=== PATIENT | male | born 1965 | race Caucasian/White ===

== ENCOUNTER 2017-05-09 15:18 | Inpatient (IN) | payer OTHER, MEDICARE ==
[~2017-05-09] VITALS: Ht 172.7 cm; Wt 88.1 kg
[~2017-05-09 15:18] MED LIST: ATOR20TA PO; BENZ1TAB PO; EFFE75CA PO; GEOD80CA PO; NAPR500 PO; TRAZ100 PO
[2017-05-09 15:49] VITALS: BP 127/83; PULSE 118; RESP 20; TEMP 98.9; O2SAT 94
[2017-05-09 17:11] LABS: AUTOMATED NEUTROPHIL # 5.5 TH/MM3 (1.8-7.7); BASOPHIL # 0.1 TH/MM3 (0-0.2); BASOPHIL % 0.7 % (0.0-2.0); EOSINOPHIL # 0.3 TH/MM3 (0-0.4); EOSINOPHIL % 3.6 % (0.0-4.0); HEMATOCRIT 49.9 % (39.0-51.0); HEMOGLOBIN 17.7 GM/DL (13.0-17.0); LYMPH % 22.7 % (9.0-44.0); LYMPHOCYTE # 1.9 TH/MM3 (1.0-4.8); MEAN CELL VOLUME 96.6 FL (80.0-100.0); MEAN CORPUSCULAR HEMOGLOBIN 34.3 PG (27.0-34.0); MEAN CORPUSCULAR HGB CONC 35.5 % (32.0-36.0); MEAN PLATELET VOLUME 7.6 FL (7.0-11.0); MONOCYTE # 0.7 TH/MM3 (0-0.9); PLATELET COUNT 184 TH/MM3 (150-450); RED BLOOD COUNT 5.16 MIL/MM3 (4.50-5.90); RED CELL DISTRIBUTION WIDTH 12.8 % (11.6-17.2); WHITE BLOOD COUNT 8.5 TH/MM3 (4.0-11.0)
[2017-05-09 17:36] LABS: ALBUMIN 4.5 GM/DL (3.4-5.0); AST (GOT) 33 U/L (15-37); BICARBONATE 22.7 MEQ/L (21.0-32.0); BLOOD UREA NITROGEN 25 MG/DL (7-18); CHLORIDE 106 MEQ/L (98-107); CREATININE 1.31 MG/DL (0.60-1.30); GLOMERULAR FILTRATION RATE 57 ML/MIN (>89); GLUCOSE,RANDOM 105 MG/DL (74-106); SODIUM (NA) 137 MEQ/L (136-145)
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
[2017-05-09 17:43] LABS: ALKALINE PHOSPHATASE 67 U/L (45-117); ALT (GPT) 42 U/L (12-78); TOTAL BILIRUBIN ADULT 0.5 MG/DL (0.2-1.0)
[2017-05-09 17:45] LABS: ACETAMINOPHEN LESS THAN 2.0 MCG/ML (10.0-30.0)
[2017-05-09 18:00] VITALS: BP 122/85; PULSE 100; RESP 18; TEMP 98.7; O2SAT 96
[2017-05-10 06:09] VITALS: BP 117/71; PULSE 82; RESP 18; TEMP 98.5; O2SAT 99
[2017-05-10 09:53] VITALS: BP 123/69; PULSE 86; RESP 18; O2SAT 94
[2017-05-10] MEDS ORDERED: ACETAMINOPHEN 325 MG TAB PO PRN (10:30)
[2017-05-10] MEDS ORDERED: LORazepam 1 MG TAB PO PRN (10:30)
[2017-05-10] MEDS ORDERED: NAPROXEN 500 MG TAB PO PRN (10:30)
[2017-05-10] MEDS ORDERED: MAGNESIUM HYDROXIDE SUSP 30 ML CUP PO PRN (10:30)
[2017-05-10] MEDS ORDERED: ALUMINUM/MAGNESIUM/SIMETH 30 ML CUP PO PRN (10:30)
[2017-05-10] MEDS ORDERED: diphenhydrAMINE HCL 50 MG CAP PO PRN (10:30)
[2017-05-10] MEDS ORDERED: diphenhydrAMINE HCL 50 MG/ML VIAL IM PRN (10:30)
[2017-05-10] MEDS ORDERED: LORazepam 2 MG/ML VIAL IM PRN (10:30)
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
--- NOTE | 2017-05-10 12:47 | PD.CONS ---
HPI Service [facility] Hospitalists Consult Requested By Dr. Hernandez Reason for Consult Hx of cardiovascular disease. Primary Care Physician No Primary Care Physician Diagnoses: History of Present Illness Written by Mona Amezcua, acting as scribe for Dr. Sarkar on 05/10/17 at 12: 35. 52-year-old male with history of schizoaffective disorder, tobacco use, and hyperlipidemia admitted to inpatient psychiatry under Shi act for aggressive behavior and threatening staff members at [facility]. Hospitalist consulted for evaluation of history of cardiovascular disease however patient denies any hypertension or heart problems. The patient reports over the last five days he has been "on the very edge". He admits to feeling depressed. He is residing at an [facility] and he believes people in the home are stealing from him. He currently denies any auditory or visual hallucinations. He denies any medical complaints including no headache, lightheadedness, dizziness, chest pain , palpitations, shortness of breath, abdominal pain, nausea/vomiting, or urinary complaints. Vital signs currently stable. Labs remarkable for creatinine 1.31, baseline around 0.9 on previous visits. Review of Systems Except as stated in HPI: all other systems reviewed are Neg Past Family Social History Allergies: Coded Allergies: loxapine (Unverified Allergy, Severe, EYES ROLL TO BACK OF HEAD, 12/13/16) sertraline (Unverified Allergy, Severe, EYES ROLL TO BACK OF HEAD, 12/13/16 ) Past Medical History Schizoaffective disorder Hyperlipidemia Past Surgical History Right hand abscess I&D, +MRSA in 2009 Reported Medications Naprosyn (Naproxen) 500 Mg Tab 500 Mg PO Q12HR PRN Atorvastatin 20 mg tab (Atorvastatin Calcium) 20 Mg Tab 1 Tab PO HS Effexor Xr (Venlafaxine HCl) 75 Mg Cap 75 Mg PO BID Trazodone HCl 100 Mg Tab 100 Mg PO HS Benztropine Mesylate 1 Mg Tab 1 Mg PO BID Geodon (Ziprasidone) 80 Mg Cap 160 Mg PO HS Active Ordered Medications Current Medications Medications (Trade) Dose Ordered Sig/Srini Route Start Time Stop Time Status Last Admin (Ativan) 1 mg Q6H PRN PO 05/10/17 10:30 (Ativan Inj) 1 mg Q6H PRN IM 05/10/17 10:30 (Benadryl) 50 mg Q6H PRN PO 05/10/17 10:30 (Benadryl Inj) 50 mg Q6H PRN IM 05/10/17 10:30 (Tylenol) 650 mg Q4H PRN PO 05/10/17 10:30 (Milk Of Magnesia Liq) 30 ml DAILY PRN PO 05/10/17 10:30 (Mag-Al Plus Susp Liq) 30 ml Q6H PRN PO 05/10/17 10:30 (Cogentin) 1 mg BID PO 05/10/17 21:00 (Naprosyn) 500 mg Q12HR PRN PO 05/10/17 10:30 (Desyrel) 100 mg HS PO 05/10/17 21:00 (Effexor Xr) 75 mg BID PO 05/10/17 21:00 (Geodon) 160 mg HS PO 05/10/17 21:00 (Lipitor) 20 mg HS PO 05/10/17 21:00 Family History Mother with breast cancer, Father with no significant medical problems, still living Social History Smokes tobacco, 1415 cigarettes per day Denies any alcohol or illicit drug use Currently residing at an [facility] however patient believes he may now be homeless Physical Exam Vital Signs Vital Signs Date Time Temp Pulse Resp B/P (MAP) Pulse Ox O2 Delivery O2 Flow Rate FiO2 05/10/17 09:53 86 18 123/69 (87) 94 05/10/17 06:09 98.5 82 18 117/71 (86) 99 Room Air 05/09/17 18:00 98.7 100 18 122/85 (97) 96 Room Air 05/09/17 15:49 98.9 118 20 127/83 (98) 94 Physical Exam GENERAL: Well-nourished, well-developed middle-aged male patient in [facility]. SKIN: Warm and dry. No rash. HEAD: Normocephalic. Atraumatic. EYES: Pupils equal and round. No scleral icterus. No injection or drainage. ENT: No nasal bleeding or discharge. Mucous membranes pink and moist. NECK: Supple. Trachea midline. CARDIOVASCULAR: Regular rate and rhythm. S1, S2 noted. No murmur appreciated. RESPIRATORY: No accessory muscle use. Clear to auscultation. Breath sounds equal bilaterally. GASTROINTESTINAL: Abdomen soft, non-tender, nondistended. Normoactive bowel sounds x4. MUSCULOSKELETAL: No obvious deformities. Extremities without clubbing, cyanosis , or edema. NEUROLOGICAL: Awake and alert. No obvious cranial nerve deficits. Motor grossly within normal limits. Normal speech. Laboratory Laboratory Tests Test 05/09/17 16:15 White Blood Count 8.5 Red Blood Count 5.16 Hemoglobin 17.7 Hematocrit 49.9 Mean Corpuscular Volume 96.6 Mean Corpuscular Hemoglobin 34.3 Mean Corpuscular Hemoglobin Concent 35.5 Red Cell Distribution Width 12.8 Platelet Count 184 Mean Platelet Volume 7.6 Neutrophils (%) (Auto) 65.0 Lymphocytes (%) (Auto) 22.7 Monocytes (%) (Auto) 8.0 Eosinophils (%) (Auto) 3.6 Basophils (%) (Auto) 0.7 Neutrophils # (Auto) 5.5 Lymphocytes # (Auto) 1.9 Monocytes # (Auto) 0.7 Eosinophils # (Auto) 0.3 Basophils # (Auto) 0.1 CBC Comment DIFF FINAL Differential Comment Blood Urea Nitrogen 25 Creatinine 1.31 Random Glucose 105 Total Protein 8.0 Albumin 4.5 Calcium Level 9.0 Alkaline Phosphatase 67 Aspartate Amino Transf (AST/SGOT) 33 Alanine Aminotransferase (ALT/SGPT) 42 Total Bilirubin 0.5 Sodium Level 137 Potassium Level 3.6 Chloride Level 106 Carbon Dioxide Level 22.7 Anion Gap 8 Estimat Glomerular Filtration Rate 57 Salicylates Level 5.3 Urine Opiates Screen NEG Acetaminophen Level LESS THAN 2.0 Urine Barbiturates Screen NEG Urine Amphetamines Screen NEG Urine Benzodiazepines Screen NEG Urine Cocaine Screen NEG Urine Cannabinoids Screen NEG Ethyl Alcohol Level LESS THAN 3 Result Diagram: 05/09/17 1615 05/09/17 1615 Assessment and Plan Problem List: (1) RICO (acute kidney injury) ICD Code: N17.9 - Acute kidney failure, unspecified (2) HLD (hyperlipidemia) ICD Code: E78.5 - Hyperlipidemia, unspecified (3) Schizophrenia, paranoid type ICD Code: F20.0 - Paranoid schizophrenia Assessment and Plan 52-year-old male with history of schizoaffective disorder, tobacco use, and hyperlipidemia admitted to inpatient psychiatry under Shi act for aggressive behavior and threatening staff members at [facility]. Hospitalist consulted for evaluation of history of cardiovascular disease however patient denies any hypertension or heart problems. Schizoaffective Disorder with Aggressive Behavior: currently under Shi Act and admitted to inpatient psychiatry. -continue treatment per psychiatry RICO: Creatinine 1.31, baseline around 0.9 on previous visits. Suspect secondary to mild dehydration. -Encourage oral fluid intake -Avoid nephrotoxins -Repeat BMP in am, if stable, will likely sign off Hyperlipidemia: chronic, stable -LFTs wnl -continue patient's statin DVT Prophylaxis: patient is ambulatory the above note was scribed by Ms. Mona Amezcua ( KESHA). I attest that I had a [id number] encounter with the patient and personally performed the physical exam and medical decision making . Discussed Condition With Patient, sewing supervisor Mona Amezcua PA-C May 10, 2017 12:47 Kathy Sarkar MD May 10, 2017 13:11
[2017-05-10] MEDS: traZODone HCL 100 MG TAB PO SCH (21:13)
[2017-05-10] MEDS: BENZTROPINE MESYLATE 1 MG TAB PO SCH (21:13)
[2017-05-10] MEDS: VENLAFAXINE HCL XR 75 MG CAP PO SCH (21:14)
[2017-05-10] MEDS: ATORVASTATIN 20 MG TAB PO SCH (21:14)
[2017-05-10] MEDS: ZIPRASIDONE HCL 80 MG CAP PO SCH (21:14)
[2017-05-11 05:53] VITALS: BP 105/71; PULSE 98; RESP 17; TEMP 98; O2SAT 96
[2017-05-11] MEDS: BENZTROPINE MESYLATE 1 MG TAB PO SCH ×2 (08:25→20:18)
[2017-05-11] MEDS: VENLAFAXINE HCL XR 75 MG CAP PO SCH ×2 (08:25→20:18)
[2017-05-11 11:45] LABS: AUTOMATED NEUTROPHIL # 3.8 TH/MM3 (1.8-7.7); BASOPHIL # 0.1 TH/MM3 (0-0.2); BASOPHIL % 1.1 % (0.0-2.0); EOSINOPHIL # 0.2 TH/MM3 (0-0.4); EOSINOPHIL % 3.3 % (0.0-4.0); HEMATOCRIT 49.9 % (39.0-51.0); LYMPH % 27.4 % (9.0-44.0); LYMPHOCYTE # 1.8 TH/MM3 (1.0-4.8); MEAN CELL VOLUME 96.4 FL (80.0-100.0); MEAN CORPUSCULAR HEMOGLOBIN 34.7 PG (27.0-34.0); MONO % 10.4 % (0.0-8.0); MONOCYTE # 0.7 TH/MM3 (0-0.9); NEUT % 57.8 % (16.0-70.0); PLATELET COUNT 196 TH/MM3 (150-450); RED BLOOD COUNT 5.17 MIL/MM3 (4.50-5.90); RED CELL DISTRIBUTION WIDTH 12.6 % (11.6-17.2); WHITE BLOOD COUNT 6.6 TH/MM3 (4.0-11.0)
[2017-05-11 11:58] LABS: ALBUMIN 4.1 GM/DL (3.4-5.0); AST (GOT) 21 U/L (15-37); BICARBONATE 23.1 MEQ/L (21.0-32.0); BLOOD UREA NITROGEN 19 MG/DL (7-18); CALCIUM 9.4 MG/DL (8.5-10.1); CHLORIDE 103 MEQ/L (98-107); CREATININE 1.09 MG/DL (0.60-1.30); GLOMERULAR FILTRATION RATE 71 ML/MIN (>89); GLUCOSE,RANDOM 80 MG/DL (74-106); SODIUM (NA) 139 MEQ/L (136-145)
[2017-05-11 12:00] LABS: CHOLESTEROL 122 MG/DL (120-200); TRIGLYCERIDES 174 MG/DL (42-150)
[2017-05-11 12:26] LABS: ALKALINE PHOSPHATASE 65 U/L (45-117); ALT (GPT) 40 U/L (12-78); CHOLESTEROL/ HDL RATIO 3.77 RATIO; HDL CHOLESTEROL 32.3 MG/DL (40.0-60.0); LDL CHOLESTEROL 55 MG/DL (0-99); TOTAL BILIRUBIN ADULT 0.5 MG/DL (0.2-1.0); TOTAL PROTEIN 7.8 GM/DL (6.4-8.2)
[2017-05-11 12:45] LABS: BANDS 1 % (0-6); BASOPHILS 1 % (0-2); LYMPHOCYTES 30 % (9-44); MONOCYTES 10 % (0-8); NEUTROPHIL # MANUAL DIFF 3.8 TH/MM3 (1.8-7.7); POLYS (SEG NEUTROPHILS) 57 % (16-70)
[2017-05-11] MEDS: NICOTINE 14 MG/24 HR PATCH T-DERMAL SCH (12:45)
--- NOTE | 2017-05-11 12:47 | HHI.PR ---
Subjective Remarks in no distress. looks and feels better today. no new complaints. d/w the RN and no acute issues over night. Objective Vitals Vital Signs Date Time Temp Pulse Resp B/P (MAP) Pulse Ox O2 Delivery O2 Flow Rate FiO2 05/11/17 05:53 98.0 98 17 105/71 (82) 96 05/10/17 12:59 Result Diagram: 05/11/17 1017 05/11/17 1017 Objective Remarks GENERAL: This is a well-nourished, well-developed patient, in no apparent distress. CARDIOVASCULAR: Regular rate and regular rhythm without murmurs, gallops, or rubs. RESPIRATORY: Clear to auscultation. Breath sounds equal bilaterally. No wheezes , rales, or rhonchi. GASTROINTESTINAL: Abdomen soft, non-tender, nondistended. Normal, active bowel sounds MUSCULOSKELETAL: Extremities without clubbing, cyanosis, or edema. NEURO: awake and alert. Medications and IVs Inpatient Medications Acetaminophen (Tylenol) 650 mg Q4H PRN PO Temp >101F; Start 05/10/17 at 10:30 Al Hydrox/Mg Hydrox/Simethicone (Mag-Al Plus Susp Liq) 30 ml Q6H PRN PO DYSPEPSIA; Start 05/10/17 at 10:30 Atorvastatin Calcium (Lipitor) 20 mg HS PO Last administered on 05/10/17at 21:14 ; Start 05/10/17 at 21:00 Benztropine Mesylate (Cogentin) 1 mg BID PO Last administered on 05/11/17at 08: 25; Start 05/10/17 at 21:00 Diphenhydramine HCl (Benadryl Inj) 50 mg Q6H PRN IM For mild anxiety and/or EPS ; Start 05/10/17 at 10:30 Diphenhydramine HCl (Benadryl) 50 mg Q6H PRN PO For mild anxiety and/or EPS; Start 05/10/17 at 10:30 Lorazepam (Ativan Inj) 1 mg Q6H PRN IM MODERATE TO SEVERE ANXIETY; Start at 10:30 Lorazepam (Ativan) 1 mg Q6H PRN PO MODERATE TO SEVERE ANXIETY; Start 05/10/17 at 10:30 Magnesium Hydroxide (Milk Of Magnesia Liq) 30 ml DAILY PRN PO CONSTIPATION; Start 05/10/17 at 10:30 Miscellaneous Information 1 DAILY T-DERMAL ; Start 05/12/17 at 09:00; Status UNV Naproxen (Naprosyn) 500 mg Q12HR PRN PO PAIN SCALE 1 TO 10; Start 05/10/17 at 10:30 Nicotine (Habitrol 14 Mg Patch.24 Hr) 1 patch DAILY T-DERMAL ; Start 05/11/17 at 12:45; Status UNV Trazodone HCl (Desyrel) 100 mg HS PO Last administered on 05/10/17at 21:13; Start 05/10/17 at 21:00 Venlafaxine HCl (Effexor Xr) 75 mg BID PO Last administered on 05/11/17at 08:25 ; Start 05/10/17 at 21:00 Ziprasidone (Geodon) 160 mg HS PO Last administered on 05/10/17at 21:14; Start 05/10/17 at 21:00 A/P Problem List: (1) RICO (acute kidney injury) ICD Code: N17.9 - Acute kidney failure, unspecified (2) HLD (hyperlipidemia) ICD Code: E78.5 - Hyperlipidemia, unspecified (3) Schizophrenia, paranoid type ICD Code: F20.0 - Paranoid schizophrenia Assessment and Plan Schizoaffective Disorder with Aggressive Behavior: currently under Shi Act and admitted to inpatient psychiatry. -continue treatment per psychiatry RICO: improved. Suspect secondary to mild dehydration. -Encourage oral fluid intake -Avoid nephrotoxins Hyperlipidemia: chronic, stable -LFTs wnl -continue patient's statin vitamin d deficiency; will replace. DVT Prophylaxis: patient is ambulatory [facility] will sign off and see him as needed. Kathy Sarkar MD May 11, 2017 12:47
[2017-05-11 13:38] LABS: HEMOGLOBIN A1C 5.4 % (4.3-6.0)
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
[2017-05-11 18:20] VITALS: BP 105/72; PULSE 108; RESP 17; TEMP 98.1; O2SAT 95
[2017-05-11] MEDS: ATORVASTATIN 20 MG TAB PO SCH (20:18)
[2017-05-11] MEDS: ZIPRASIDONE HCL 80 MG CAP PO SCH (20:18)
[2017-05-11] MEDS: traZODone HCL 100 MG TAB PO SCH (20:18)
[2017-05-12 06:00] VITALS: BP 114/69; PULSE 95; RESP 18; TEMP 97.9; O2SAT 98
[2017-05-12] MEDS: REMOVE OLD PATCH T-DERMAL SCH (09:00)
[2017-05-12] MEDS: NICOTINE 14 MG/24 HR PATCH T-DERMAL SCH (09:38)
[2017-05-12] MEDS: VENLAFAXINE HCL XR 75 MG CAP PO SCH ×2 (09:39→16:43)
[2017-05-12] MEDS: CHOLECALCIFEROL (VIT D3) 1000 UNIT TAB PO SCH (09:39)
[2017-05-12] MEDS: BENZTROPINE MESYLATE 1 MG TAB PO SCH ×2 (09:39→21:19)
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
--- NOTE | 2017-05-12 16:19 | EKG ---
Date Performed: 05/11/2017 Time Performed: 12:48:57 PTAGE: 52 years EKG: Sinus rhythm WITH SHORT CT INTERVAL BORDERLINE ECG PREVIOUS TRACING : 12/27/2013 21.50 Since previous tracing, no significant change noted DOCTOR: Tony Sears Interpretating Date/Time 05/12/2017 16:18:48
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
[2017-05-12 18:46] VITALS: BP 125/74; PULSE 103; RESP 17; TEMP 97.8; O2SAT 93
[2017-05-12] MEDS: ATORVASTATIN 20 MG TAB PO SCH (21:19)
[2017-05-12] MEDS: ZIPRASIDONE HCL 80 MG CAP PO SCH (21:19)
[2017-05-12] MEDS: traZODone HCL 100 MG TAB PO SCH (21:19)
[2017-05-13 06:06] VITALS: BP 118/59; PULSE 92; RESP 16; TEMP 97.2
[2017-05-13] MEDS: REMOVE OLD PATCH T-DERMAL SCH (09:00)
[2017-05-13] MEDS: NICOTINE 14 MG/24 HR PATCH T-DERMAL SCH (10:01)
[2017-05-13] MEDS: VENLAFAXINE HCL XR 75 MG CAP PO SCH ×2 (10:02→17:07)
[2017-05-13] MEDS: CHOLECALCIFEROL (VIT D3) 1000 UNIT TAB PO SCH (10:03)
[2017-05-13] MEDS: BENZTROPINE MESYLATE 1 MG TAB PO SCH ×2 (10:03→21:47)
--- NOTE | 2017-05-13 15:37 | HHI.PYPN ---
Subjective Remarks Pt seen and discussed with staff. He has been compliant with medications and denies side effects. No aggression or agitation on unit. He engages in odd behaviors and is guarded and paranoid. No S/HI Mental Status Examination Appearance: Disheveled Consciousness: Alert Orientation: Person, Place, Date/Time Motor Activity: Normal gait Speech: Hesitant, Slow Language: Adequate Fund of Knowledge: Adequate Attention and Concentration: Inadequate Memory: Impaired Mood: Sad, Anxious Affect: Sad Thought Process & Associations: Linear, Other Thought Content: Bizarre thinking, Delusional Hallucination Type: None Delusion Type: Paranoid, Other (persecutory) Suicidal Ideation: Yes Suicidal Plan: Yes Suicidal Intention: Yes Homicidal Ideation: No Homicidal Plan: No Homicidal Intention: No Insight: Poor Judgment: Poor Results Vitals/IOs Vital Signs Date Time Temp Pulse Resp B/P (MAP) Pulse Ox O2 Delivery O2 Flow Rate FiO2 05/13/17 06:06 97.2 92 16 118/59 (78) 05/12/17 18:46 93 05/10/17 06:09 Room Air Assessment & Plan Problem List: (1) Schizophrenia, paranoid type ICD Codes: F20.0 - Paranoid schizophrenia Assessment & Plan Continue current tx plan. Estimated LOS: days Justification for Cont. Inpt. impairments in reality testing Dalia Galeas MD May 13, 2017 15:37
[2017-05-13 18:27] VITALS: BP 127/75; PULSE 93; RESP 17; TEMP 98.5; O2SAT 97
[2017-05-13] MEDS: ATORVASTATIN 20 MG TAB PO SCH (21:47)
[2017-05-13] MEDS: traZODone HCL 100 MG TAB PO SCH (21:47)
[2017-05-13] MEDS: ZIPRASIDONE HCL 80 MG CAP PO SCH (21:47)
[2017-05-14 05:36] VITALS: BP 101/74; PULSE 99; RESP 17; TEMP 97.4; O2SAT 95
[2017-05-14] MEDS: REMOVE OLD PATCH T-DERMAL SCH (09:00)
[2017-05-14] MEDS: BENZTROPINE MESYLATE 1 MG TAB PO SCH ×2 (10:28→20:21)
[2017-05-14] MEDS: CHOLECALCIFEROL (VIT D3) 1000 UNIT TAB PO SCH (10:28)
[2017-05-14] MEDS: VENLAFAXINE HCL XR 75 MG CAP PO SCH ×2 (10:28→16:00)
[2017-05-14] MEDS: NICOTINE 14 MG/24 HR PATCH T-DERMAL SCH (10:30)
--- NOTE | 2017-05-14 13:12 | HHI.PYPN ---
Subjective Remarks Pt seen and discussed with staff. He remains guarded and internally preoccupied , with bizarre behaviors. He interacts minimally and does not participate in activities. He is compliant with medications and denies side effects. No SI/HI Mental Status Examination Appearance: Disheveled Consciousness: Alert Orientation: Person, Place, Date/Time Motor Activity: Normal gait Speech: Hesitant, Slow Language: Adequate Fund of Knowledge: Adequate Attention and Concentration: Inadequate Memory: Impaired Mood: Sad, Anxious Affect: Sad Thought Process & Associations: Linear, Other Thought Content: Bizarre thinking, Delusional Hallucination Type: None (internal stimulation), Other Delusion Type: Paranoid, Other (persecutory) Suicidal Ideation: No Suicidal Plan: No Suicidal Intention: No Homicidal Ideation: No Homicidal Plan: No Homicidal Intention: No Insight: Poor Judgment: Poor Results Vitals/IOs Vital Signs Date Time Temp Pulse Resp B/P (MAP) Pulse Ox O2 Delivery O2 Flow Rate FiO2 05/14/17 05:36 97.4 99 17 101/74 (83) 95 Intake and Output 05/14/17 05/14/17 05/15/17 08:00 16:00 00:00 Intake Total 240 ml 240 ml Balance 240 ml 240 ml Assessment & Plan Problem List: (1) Schizophrenia, paranoid type ICD Codes: F20.0 - Paranoid schizophrenia Assessment & Plan Continue current tx plan. Estimated LOS: days Justification for Cont. Inpt. impairments in reality construction and self care Dalia Galeas MD May 14, 2017 13:12
[2017-05-14 17:20] VITALS: BP 123/73; PULSE 84; RESP 16; TEMP 97.8; O2SAT 97
[2017-05-14] MEDS: traZODone HCL 100 MG TAB PO SCH (20:21)
[2017-05-14] MEDS: ZIPRASIDONE HCL 80 MG CAP PO SCH (20:21)
[2017-05-14] MEDS: ATORVASTATIN 20 MG TAB PO SCH (20:21)
[2017-05-15 05:40] VITALS: BP 110/80; PULSE 91; RESP 17; TEMP 97.8; O2SAT 97
[2017-05-15] MEDS: REMOVE OLD PATCH T-DERMAL SCH (09:00)
[2017-05-15] MEDS: BENZTROPINE MESYLATE 1 MG TAB PO SCH ×2 (10:03→20:51)
[2017-05-15] MEDS: CHOLECALCIFEROL (VIT D3) 1000 UNIT TAB PO SCH (10:03)
[2017-05-15] MEDS: VENLAFAXINE HCL XR 75 MG CAP PO SCH ×2 (10:03→15:54)
[2017-05-15] MEDS: NICOTINE 14 MG/24 HR PATCH T-DERMAL SCH (10:05)
[2017-05-15 18:00] VITALS: BP 115/71; PULSE 103; RESP 18; TEMP 98.7; O2SAT 97
[2017-05-15] MEDS: ZIPRASIDONE HCL 80 MG CAP PO SCH (20:51)
[2017-05-15] MEDS: traZODone HCL 100 MG TAB PO SCH (20:51)
[2017-05-15] MEDS: ATORVASTATIN 20 MG TAB PO SCH (20:51)
[2017-05-16 05:42] VITALS: BP 94/53; PULSE 82; RESP 18; TEMP 97.7; O2SAT 92
[2017-05-16] MEDS: VENLAFAXINE HCL XR 75 MG CAP PO SCH ×2 (08:22→15:53)
[2017-05-16] MEDS: CHOLECALCIFEROL (VIT D3) 1000 UNIT TAB PO SCH (08:22)
[2017-05-16] MEDS: BENZTROPINE MESYLATE 1 MG TAB PO SCH ×2 (08:22→20:54)
[2017-05-16] MEDS: REMOVE OLD PATCH T-DERMAL SCH (08:22)
[2017-05-16] MEDS: NICOTINE 14 MG/24 HR PATCH T-DERMAL SCH (08:22)
[2017-05-16 08:47] VITALS: BP 94/53; PULSE 82; RESP 18; TEMP 97.7; O2SAT 92
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
--- NOTE | 2017-05-16 14:30 | HHI.PYPN ---
Subjective Remarks This is seen for follow-up, chart reviewed. Discussion she staff reported the patient hadn't been compliant has a, cooperative staff. Patient found participating group earlier but was able to cooperate with interview today. Patient states that he had been sleeping well his mood has been "alright" denies any physical complaints, eating and drinking well Patient continues with paranoid and persecutory ideation stating that the government is trying to persecute him into "doing what is that" referring to an individual in 1986 who had went on a shooting rampage and killed 14 people. Patient states that he does not want to do anything of that sort stating that it is wrong and currently denying any homicidal ideation. Patient states that he had never considered doing anything that but fears to the government is trying to make do something similar. Patient states he does not want return back to his assisted living facility continues to be stressed and upset feeling that the process owner of the previous [facility] who is his payee is taking his money. Review of Systems Except as stated in HPI: all other systems reviewed are Neg Mental Status Examination Appearance: Appropriate Consciousness: Alert Orientation: Person, Place, Date/Time Motor Activity: Normal gait Speech: Other (low-volume) Language: Adequate Fund of Knowledge: Adequate Attention and Concentration: Inadequate Memory: Impaired Mood: Anxious Affect: Anxious Thought Process & Associations: Linear, Other Thought Content: Bizarre thinking, Preoccupations, Delusional Hallucination Type: None, Other Delusion Type: Paranoid, Other (persecutory) Suicidal Ideation: No Suicidal Plan: No Suicidal Intention: No Homicidal Ideation: No Homicidal Plan: No Homicidal Intention: No Insight: Poor Judgment: Poor Results Vitals/IOs Vital Signs Date Time Temp Pulse Resp B/P (MAP) Pulse Ox O2 Delivery O2 Flow Rate FiO2 05/16/17 08:47 97.7 82 18 94/53 (67) 92 Intake and Output 05/16/17 05/16/17 05/17/17 08:00 16:00 00:00 Intake Total 600 ml Balance 600 ml Assessment & Plan Problem List: (1) Schizophrenia, paranoid type ICD Codes: F20.0 - Paranoid schizophrenia Assessment & Plan Patient at this time denies any depressive manic symptoms but continues to endorse paranoid and persecutory delusions of the government trying to persecute him. We'll increase Geodon to 180 mg by mouth daily for psychosis to monitor mood and behavior. Continue aggressive medications. Will order subsequent EKG to monitor QTc interval as his antipsychotic dose will be increased. Continue rest of medications. Discharge planning in progress Justification for Cont. Inpt. At risk for further decompensation if at lower level of care Discharge Planning To be determined Himanshu Mary MD May 16, 2017 14:30
[2017-05-16 17:55] VITALS: BP 119/69; PULSE 96; RESP 16; TEMP 98.2; O2SAT 95
[2017-05-16] MEDS: traZODone HCL 100 MG TAB PO SCH (20:54)
[2017-05-16] MEDS: ATORVASTATIN 20 MG TAB PO SCH (20:55)
[2017-05-16] MEDS: ZIPRASIDONE HCL 60 MG CAP PO SCH (20:55)
[2017-05-17 06:17] VITALS: BP 95/59; PULSE 80; RESP 18; TEMP 97.7; O2SAT 99
[2017-05-17 06:56] VITALS: BP 95/59; PULSE 80; RESP 18; TEMP 97.7; O2SAT 99
[2017-05-17] MEDS: CHOLECALCIFEROL (VIT D3) 1000 UNIT TAB PO SCH (08:20)
[2017-05-17] MEDS: VENLAFAXINE HCL XR 75 MG CAP PO SCH ×2 (08:20→15:18)
[2017-05-17] MEDS: REMOVE OLD PATCH T-DERMAL SCH (08:20)
[2017-05-17] MEDS: BENZTROPINE MESYLATE 1 MG TAB PO SCH ×2 (08:20→20:30)
[2017-05-17] MEDS: NICOTINE 14 MG/24 HR PATCH T-DERMAL SCH (08:20)
--- NOTE | 2017-05-17 12:28 | HHI.PYPN ---
Subjective Remarks Patient seen for follow-up, chart reviewed. Discussion she staff reported the patient stated feeling fine but no behavioral issues. Patient was found participating in group today to be calm and cooperative. Patient states that he is feeling okay, continues to believe that his when he was taking by the business owner/engineer of his prior residence which she states never received any money from him. Patient states that his mood recently has been "alright" denies any SI or HI, any perceptual disturbances but continues to have paranoid and persecutory delusions from the government trying to make him completed a mass murderer which she states has never contemplated and feels it is wrong. Review of Systems Except as stated in HPI: all other systems reviewed are Neg Mental Status Examination Appearance: Appropriate Consciousness: Alert Orientation: Person, Place, Date/Time Motor Activity: Normal gait Speech: Unremarkable Language: Adequate Fund of Knowledge: Adequate Attention and Concentration: Inadequate Memory: Impaired Mood: Appropriate Affect: Appropriate Thought Process & Associations: Linear, Other Thought Content: Bizarre thinking, Preoccupations, Delusional Hallucination Type: None, Other Delusion Type: Paranoid, Other (persecutory) Suicidal Ideation: No Suicidal Plan: No Suicidal Intention: No Homicidal Ideation: No Homicidal Plan: No Homicidal Intention: No Insight: Poor Judgment: Poor Results Vitals/IOs Vital Signs Date Time Temp Pulse Resp B/P (MAP) Pulse Ox O2 Delivery O2 Flow Rate FiO2 05/17/17 06:56 97.7 80 18 95/59 (71) 99 Assessment & Plan Problem List: (1) Schizophrenia, paranoid type ICD Codes: F20.0 - Paranoid schizophrenia Assessment & Plan Patient at this time continues with paranoid and persecutory delusions but stated has mood is been improving and tolerating recent medication change well. Patient denies any perceptual disturbances. We'll continue current treatment as Geodon was recently increased. Discharge planning in progress Justification for Cont. Inpt. At risk for further decompensation at lower level of care Discharge Planning To be determined Himanshu Mary MD May 17, 2017 12:28
[2017-05-17 18:00] VITALS: BP 114/70; PULSE 89; RESP 18; TEMP 98; O2SAT 97
[2017-05-17] MEDS: ATORVASTATIN 20 MG TAB PO SCH (20:30)
[2017-05-17] MEDS: traZODone HCL 100 MG TAB PO SCH (20:30)
[2017-05-17] MEDS: ZIPRASIDONE HCL 60 MG CAP PO SCH (20:30)
[2017-05-18] MEDS: REMOVE OLD PATCH T-DERMAL SCH (09:00)
[2017-05-18] MEDS: VENLAFAXINE HCL XR 75 MG CAP PO SCH ×2 (09:29→17:07)
[2017-05-18] MEDS: CHOLECALCIFEROL (VIT D3) 1000 UNIT TAB PO SCH (09:29)
[2017-05-18] MEDS: BENZTROPINE MESYLATE 1 MG TAB PO SCH ×2 (09:29→21:11)
[2017-05-18] MEDS: NICOTINE 14 MG/24 HR PATCH T-DERMAL SCH (09:29)
--- NOTE | 2017-05-18 14:24 | PD.TTN ---
Patient Problems 1. Discharge planning 2. Medication compliance 3. Knowledge deficit 4. Lack of coping skills Progress Toward Goals Provider Present: Dr. Mian Mary Provider Input: 05/16/17 patient remains delusional and paranoid Psychiatric Counselors Present: Graciela Mckeon LCSW Psych Therapist Input: 05/16/17 patient is in need of placement and [facility] is supposed to assist, unable to reach embedded case manager at [facility], most facilities appear not accepting patient at this time as discharge planners have worked on placement already Group Spec/RT/OT/MCCRAY Present: Aaron Casas OT Group Spec/RT/OT/MCCRAY Input: attends 75% of groups and participates some Graciela Mckeon LCSW May 18, 2017 14:24
--- NOTE | 2017-05-18 17:00 | HHI.PYPN ---
Subjective Remarks Patient seen for follow-up, chart reviewed. Discussion with nursing staff reported that the patient has been compliant with medications, visible on the unit but noted with some delayed response to questions. Patient was found participating in groups and later found to be calm and cooperative with interview. Patient states feeling "ok" and that his mood has been "up and down " and that today he was having suicidal ideations as he states was worrying if would be able to find a residence that would accept him. Review of Systems Except as stated in HPI: all other systems reviewed are Neg Mental Status Examination Appearance: Appropriate Consciousness: Alert Orientation: Person, Place, Date/Time Motor Activity: Normal gait Speech: Unremarkable Language: Adequate Fund of Knowledge: Adequate Attention and Concentration: Inadequate Memory: Impaired Mood: Appropriate Affect: Appropriate Thought Process & Associations: Linear, Other Thought Content: Bizarre thinking, Preoccupations, Delusional Hallucination Type: None, Other Delusion Type: Paranoid, Other (persecutory) Suicidal Ideation: No Suicidal Plan: No Suicidal Intention: No Homicidal Ideation: No Homicidal Plan: No Homicidal Intention: No Insight: Poor Judgment: Poor Results Vitals/IOs Vital Signs Date Time Temp Pulse Resp B/P (MAP) Pulse Ox O2 Delivery O2 Flow Rate FiO2 05/17/17 18:00 98.0 89 18 114/70 (85) 97 Intake and Output 05/18/17 05/18/17 05/19/17 08:00 16:00 00:00 Intake Total 600 ml Balance 600 ml Assessment & Plan Problem List: (1) Schizophrenia, paranoid type ICD Codes: F20.0 - Paranoid schizophrenia Assessment & Plan Patient noted with depressed mood related to homelessness, now reporting suicidal ideation secondary to this. Patient presented [facility] and was retained for involuntary admission. Venlafaxine was increased to 150mg PO BID, continue with rest of medications. Discharge planning in progress. Justification for Cont. Inpt. At risk for further decompensation at lower level of care. Discharge Planning To be determined. Himanshu Mary MD May 18, 2017 17:00
[2017-05-18 18:33] VITALS: BP 126/75; PULSE 97; RESP 18; TEMP 96.3; O2SAT 95
[2017-05-18] MEDS: ATORVASTATIN 20 MG TAB PO SCH (21:11)
[2017-05-18] MEDS: traZODone HCL 100 MG TAB PO SCH (21:11)
[2017-05-18] MEDS: ZIPRASIDONE HCL 60 MG CAP PO SCH (21:11)
[2017-05-19 06:12] VITALS: BP 102/60; PULSE 80; RESP 16; TEMP 98; O2SAT 100
[2017-05-19] MEDS: BENZTROPINE MESYLATE 1 MG TAB PO SCH ×2 (08:14→21:27)
[2017-05-19] MEDS: CHOLECALCIFEROL (VIT D3) 1000 UNIT TAB PO SCH (08:14)
[2017-05-19] MEDS: REMOVE OLD PATCH T-DERMAL SCH (09:00)
[2017-05-19] MEDS: VENLAFAXINE HCL XR 75 MG CAP PO SCH ×2 (09:04→16:27)
[2017-05-19] MEDS: NICOTINE 14 MG/24 HR PATCH T-DERMAL SCH (10:20)
--- NOTE | 2017-05-19 12:06 | HHI.PYPN ---
Subjective Remarks She seen for follow-up, chart reviewed. Discussion she staff reported that patient has a pleasant and cooperative with staff, no perceptual disturbances. Patient is found in her ability in the hallway noted to be calm and cooperative. Patient states that he is feeling "alright" attitude report feeling depressed, 6 out of 10 (10 being at its worse) she is denying any suicidal homicidal ideation. Patient states feeling safe in the hospital doesn' t feel anyone is persecuting him by the government here. As having had some difficulty sleeping last evening which she states she was tossing and turning. Her primary with where he will be discharged to in regards to housing. Review of Systems Except as stated in HPI: all other systems reviewed are Neg Mental Status Examination Appearance: Appropriate Consciousness: Alert Orientation: Person, Place, Date/Time Motor Activity: Normal gait Speech: Unremarkable Language: Adequate Fund of Knowledge: Adequate Attention and Concentration: Inadequate Memory: Impaired Mood: Sad Affect: Appropriate Thought Process & Associations: Linear, Other Thought Content: Bizarre thinking, Preoccupations, Delusional Hallucination Type: None, Other Delusion Type: Paranoid, Other (persecutory) Suicidal Ideation: No Suicidal Plan: No Suicidal Intention: No Homicidal Ideation: No Homicidal Plan: No Homicidal Intention: No Insight: Poor Judgment: Poor Results Vitals/IOs Vital Signs Date Time Temp Pulse Resp B/P (MAP) Pulse Ox O2 Delivery O2 Flow Rate FiO2 05/19/17 06:12 98.0 80 16 102/60 (74) 100 Intake and Output 05/19/17 05/19/17 05/20/17 08:00 16:00 00:00 Intake Total 240 ml Balance 240 ml Assessment & Plan Problem List: (1) Schizophrenia, paranoid type ICD Codes: F20.0 - Paranoid schizophrenia Assessment & Plan Patient noted to have continued depressed mood but denies any suicidal ideation. Patient continues to have delusions of persecution from the government did likely are fixed despite being on antipsychotic treatment. Despite having these delusions patient has no intention or thoughts of carrying out these delusions as they are ego-dystonic. Any current treatment. Continue to encourage patient to maintain personal hygiene and participate in groups and activities. Discharge planning in progress Justification for Cont. Inpt. At risk for further decompensation if at lower level of care Discharge Planning To be determined Himanshu Mary MD 19, 2018 12:06
[2017-05-19 18:27] VITALS: BP 124/72; PULSE 106; RESP 16; TEMP 98.6; O2SAT 100
[2017-05-19] MEDS: ATORVASTATIN 20 MG TAB PO SCH (21:27)
[2017-05-19] MEDS: ZIPRASIDONE HCL 60 MG CAP PO SCH (21:27)
[2017-05-19] MEDS: traZODone HCL 100 MG TAB PO SCH (21:27)
[2017-05-20 06:03] VITALS: BP 106/64; PULSE 89; RESP 16; TEMP 98.4; O2SAT 95
[2017-05-20] MEDS: REMOVE OLD PATCH T-DERMAL SCH (09:00)
[2017-05-20] MEDS: CHOLECALCIFEROL (VIT D3) 1000 UNIT TAB PO SCH (09:06)
[2017-05-20] MEDS: BENZTROPINE MESYLATE 1 MG TAB PO SCH ×2 (09:07→22:06)
[2017-05-20] MEDS: NICOTINE 14 MG/24 HR PATCH T-DERMAL SCH (09:07)
[2017-05-20] MEDS: VENLAFAXINE HCL XR 75 MG CAP PO SCH ×2 (09:07→16:05)
[2017-05-20] MEDS ORDERED: INFLUENZA VIRUS VACCINE (QUADRIVALENT) 0.5 ML SYR IM ONE (10:00)
--- NOTE | 2017-05-20 12:37 | HHI.PYPN ---
Subjective Remarks Patient was seen and case discussed with nursing. Patient is compliant with medications and tolerating it well. He remains disheveled with poor eye contact. He denies auditory visual hallucinations or other psychotic symptoms. Insight is quite poor. Tolerating medications well and behaving well on the unit Mental Status Examination Appearance: Appropriate Consciousness: Alert Orientation: Person, Place, Date/Time Motor Activity: Normal gait Speech: Unremarkable Language: Adequate Fund of Knowledge: Adequate Attention and Concentration: Inadequate Memory: Impaired Mood: Sad Affect: Appropriate Thought Process & Associations: Linear, Other Thought Content: Bizarre thinking, Preoccupations, Delusional Hallucination Type: None, Other Delusion Type: Paranoid, Other (persecutory) Suicidal Ideation: No Suicidal Plan: No Suicidal Intention: No Homicidal Ideation: No Homicidal Plan: No Homicidal Intention: No Insight: Poor Judgment: Poor Results Vitals/IOs Vital Signs Date Time Temp Pulse Resp B/P (MAP) Pulse Ox O2 Delivery O2 Flow Rate FiO2 05/20/17 06:03 98.4 89 16 106/64 (78) 95 Assessment & Plan Problem List: (1) Schizophrenia, paranoid type ICD Codes: F20.0 - Paranoid schizophrenia Assessment & Plan Continue current treatment plan Justification for Cont. Inpt. Patient would decompensate in a less restrictive setting Darian Patterson DO May 20, 2017 12:37
[2017-05-20 17:28] VITALS: BP 125/74; PULSE 105; RESP 18; TEMP 98.3; O2SAT 96
[2017-05-20] MEDS: traZODone HCL 100 MG TAB PO SCH (20:42)
[2017-05-20] MEDS: ZIPRASIDONE HCL 60 MG CAP PO SCH (20:42)
[2017-05-20] MEDS: ATORVASTATIN 20 MG TAB PO SCH (20:42)
[2017-05-21 05:36] VITALS: BP 105/70; PULSE 85; RESP 16; TEMP 97.3; O2SAT 100
[2017-05-21] MEDS: REMOVE OLD PATCH T-DERMAL SCH (09:00)
[2017-05-21] MEDS: CHOLECALCIFEROL (VIT D3) 1000 UNIT TAB PO SCH (09:20)
[2017-05-21] MEDS: NICOTINE 14 MG/24 HR PATCH T-DERMAL SCH (09:20)
[2017-05-21] MEDS: BENZTROPINE MESYLATE 1 MG TAB PO SCH ×2 (09:20→21:27)
[2017-05-21] MEDS: VENLAFAXINE HCL XR 75 MG CAP PO SCH ×2 (09:20→15:04)
--- NOTE | 2017-05-21 12:38 | HHI.PYPN ---
Subjective Remarks Patient was seen and case discussed with nursing. Patient is pleasant and cooperative with exam. Continues to improve. Per nursing, he is facing at times there is questionable maternal stimulation. However, he denies any psychotic symptoms. His compliant with his medications and tolerating it well Mental Status Examination Appearance: Appropriate Consciousness: Alert Orientation: Person, Place, Date/Time Motor Activity: Normal gait Speech: Unremarkable Language: Adequate Fund of Knowledge: Adequate Attention and Concentration: Inadequate Memory: Impaired Mood: Sad Affect: Appropriate Thought Process & Associations: Linear, Other Thought Content: Bizarre thinking, Preoccupations Hallucination Type: None Delusion Type: Paranoid, Other (persecutory) Suicidal Ideation: No Suicidal Plan: No Suicidal Intention: No Homicidal Ideation: No Homicidal Plan: No Homicidal Intention: No Insight: Poor Judgment: Poor Results Vitals/IOs Vital Signs Date Time Temp Pulse Resp B/P (MAP) Pulse Ox O2 Delivery O2 Flow Rate FiO2 05/21/17 05:36 97.3 85 16 105/70 (82) 100 Assessment & Plan Problem List: (1) Schizophrenia, paranoid type ICD Codes: F20.0 - Paranoid schizophrenia Assessment & Plan Continue current treatment plan Justification for Cont. Inpt. Patient will decompensate in a less restrictive setting Darian Patterson DO May 21, 2017 12:38
[2017-05-21 18:40] VITALS: BP 120/75; PULSE 105; RESP 18; TEMP 98.1; O2SAT 96
[2017-05-21] MEDS: traZODone HCL 100 MG TAB PO SCH (21:27)
[2017-05-21] MEDS: ZIPRASIDONE HCL 60 MG CAP PO SCH (21:27)
[2017-05-21] MEDS: ATORVASTATIN 20 MG TAB PO SCH (21:27)
[2017-05-22 06:16] VITALS: BP 102/66; PULSE 83; RESP 16; TEMP 97.6; O2SAT 97
[2017-05-22] MEDS: NICOTINE 14 MG/24 HR PATCH T-DERMAL SCH (08:50)
[2017-05-22] MEDS: BENZTROPINE MESYLATE 1 MG TAB PO SCH ×2 (08:50→20:48)
[2017-05-22] MEDS: CHOLECALCIFEROL (VIT D3) 1000 UNIT TAB PO SCH (08:50)
[2017-05-22] MEDS: REMOVE OLD PATCH T-DERMAL SCH (08:51)
[2017-05-22] MEDS: VENLAFAXINE HCL XR 75 MG CAP PO SCH ×2 (09:00→14:50)
--- NOTE | 2017-05-22 12:49 | HHI.PYPN ---
Subjective Remarks Patient seen for follow up; chart reviewed. Discussion with nursing stated that the patient has been visible on the unit, participates in groups. Patient was found participating in groups, calm and cooperative. Patient states that he has had an "ok weekend" but has been preoccupied with the likelihood of being accepted into an [facility] due to the circumstances that brought him into the hospital. Patient states that he is also concerned about his SSI money and states not knowing who to trust with his money as he has never been his own payee. He continues to endorse that the government is after him and wanting him to "not be locked up" so that it would be easier to persecute him through his disabiilty checks and "leak my story" (referring to having been in the alleged newspaper article years ago about being arrested for carrying a concealed weapon). When asked how the government will persecute him he states that they want him to do a mass shooting referring to Flo Francisco J incident and relating this event saying that "Will-E was his name and And-Y is my name". He denies wanting to harm others. Review of Systems Except as stated in HPI: all other systems reviewed are Neg Mental Status Examination Appearance: Appropriate Consciousness: Alert Orientation: Person, Place, Date/Time Motor Activity: Normal gait Speech: Unremarkable Language: Adequate Fund of Knowledge: Adequate Attention and Concentration: Inadequate Memory: Impaired Mood: Anxious Affect: Appropriate, Anxious Thought Process & Associations: Linear, Other Thought Content: Bizarre thinking, Preoccupations, Delusional Hallucination Type: None Delusion Type: Paranoid, Other (persecutory) Suicidal Ideation: No Suicidal Plan: No Suicidal Intention: No Homicidal Ideation: No Homicidal Plan: No Homicidal Intention: No Insight: Poor Judgment: Poor Results Vitals/IOs Vital Signs Date Time Temp Pulse Resp B/P (MAP) Pulse Ox O2 Delivery O2 Flow Rate FiO2 05/22/17 06:16 97.6 83 16 102/66 (63) 97 Assessment & Plan Problem List: (1) Schizophrenia, paranoid type ICD Codes: F20.0 - Paranoid schizophrenia Assessment & Plan Patient continues to endorse paranoid and persecutory delusions despite treatment which may be fixed delusions. These delusions relate around his disability income and paranoia that people are trying to take his money which is pressure from the government towards him. He denies any depressive symptoms at this time, nor AVH but continues with delusions as stated above. Will continue current treatment. Treatment team to contniue to explore placement options. Discharge planning in progress. Justification for Cont. Inpt. At risk for decompensation at lower level of care. Discharge Planning To be determined Himanshu Mary MD May 22, 2017 12:49
[2017-05-22 18:22] VITALS: BP 109/74; PULSE 100; RESP 16; TEMP 97.7; O2SAT 98
[2017-05-22] MEDS: ATORVASTATIN 20 MG TAB PO SCH (20:48)
[2017-05-22] MEDS: traZODone HCL 100 MG TAB PO SCH (20:48)
[2017-05-22] MEDS: ZIPRASIDONE HCL 60 MG CAP PO SCH (20:49)
[2017-05-23 05:57] VITALS: BP 103/65; PULSE 76; RESP 20; TEMP 97.5; O2SAT 97
[2017-05-23 06:00] VITALS: BP 103/65; PULSE 76; RESP 20; TEMP 97.5; O2SAT 97
[2017-05-23] MEDS: REMOVE OLD PATCH T-DERMAL SCH (09:00)
[2017-05-23] MEDS: BENZTROPINE MESYLATE 1 MG TAB PO SCH ×2 (09:31→20:17)
[2017-05-23] MEDS: VENLAFAXINE HCL XR 75 MG CAP PO SCH ×2 (09:31→16:42)
[2017-05-23] MEDS: NICOTINE 14 MG/24 HR PATCH T-DERMAL SCH (09:32)
[2017-05-23] MEDS: CHOLECALCIFEROL (VIT D3) 1000 UNIT TAB PO SCH (10:16)
--- NOTE | 2017-05-23 16:30 | HHI.PYPN ---
Subjective Remarks Patient seen for follow-up, chart reviewed. Discussion with nursing staff reported that the patient is cooperative, pleasant but continues with paranoid ideations of the government persecuting him. Patient was found ambulating, calm and cooperative with interview. Patient states that he is sleeping well, mood lately has been "good", denies any perceptual disturbances or SI. He continues to endorse paranoid and persecutory delusions of the government and states that "getting more intense" which he refers to changes in the amount of money in his checks. He denies any suicidal or homicidal ideations. He also states being worried about the possibilty of having to go to [facility] and is hopeful that there will be a residential facility that will accept him. Review of Systems Except as stated in HPI: all other systems reviewed are Neg Mental Status Examination Appearance: Appropriate Consciousness: Alert Orientation: Person, Place, Date/Time Motor Activity: Normal gait Speech: Unremarkable Language: Adequate Fund of Knowledge: Adequate Attention and Concentration: Inadequate Memory: Impaired Mood: Anxious Affect: Appropriate, Anxious Thought Process & Associations: Linear, Other Thought Content: Bizarre thinking, Preoccupations, Delusional Hallucination Type: None Delusion Type: Paranoid, Other (persecutory) Suicidal Ideation: No Suicidal Plan: No Suicidal Intention: No Homicidal Ideation: No Homicidal Plan: No Homicidal Intention: No Insight: Poor Judgment: Poor Results Vitals/IOs Vital Signs Date Time Temp Pulse Resp B/P (MAP) Pulse Ox O2 Delivery O2 Flow Rate FiO2 05/23/17 06:00 97.5 76 20 103/65 (78) 97 Assessment & Plan Problem List: (1) Schizophrenia, paranoid type ICD Codes: F20.0 - Paranoid schizophrenia Assessment & Plan Patient continues with persistent paranoid and persecutory delusions but denies any SI or HI nor any AVH. Despite on adequate doses of antipsychotic patient persists with these delusions which may be fixed. Treatment team to continue to explore options for referral to resdiential facilities. Continue current treatment. Continue recommendations as per primary medical team. Discharge planning in progress. Justification for Cont. Inpt. At risk for further decompensation if at lower level of care. Discharge Planning To be determined Himanshu Mary MD May 23, 2017 16:30
[2017-05-23 18:23] VITALS: BP 107/55; PULSE 90; RESP 18; TEMP 98.3; O2SAT 98
[2017-05-23] MEDS: ZIPRASIDONE HCL 60 MG CAP PO SCH (20:17)
[2017-05-23] MEDS: ATORVASTATIN 20 MG TAB PO SCH (20:17)
[2017-05-23] MEDS: traZODone HCL 100 MG TAB PO SCH (20:17)
[2017-05-24 05:43] VITALS: BP 96/63; PULSE 75; RESP 17; TEMP 97.9; O2SAT 98
[2017-05-24] MEDS: BENZTROPINE MESYLATE 1 MG TAB PO SCH ×2 (08:59→20:19)
[2017-05-24] MEDS: REMOVE OLD PATCH T-DERMAL SCH (09:00)
[2017-05-24] MEDS: CHOLECALCIFEROL (VIT D3) 1000 UNIT TAB PO SCH (09:22)
[2017-05-24] MEDS: NICOTINE 14 MG/24 HR PATCH T-DERMAL SCH (09:22)
[2017-05-24] MEDS: VENLAFAXINE HCL XR 75 MG CAP PO SCH ×2 (09:22→17:11)
--- NOTE | 2017-05-24 17:33 | HHI.PYPN ---
Subjective Remarks Patient seen for follow-up, chart reviewed. Discussion with nursing staff reported patient having been calm, cooperative, slept, med compliant. Patient states he follows up with Dr. Shelton @ [facility]. He continues to endorse that the government is persecuting him which he states has felt since the age of 24 y/o. He states that the government has "not gotten close to me doing what Flo Marx did". He refers to a newspaper article which mentioned his arrest for carrying a gun in a bag when he went to the convenience store at the time he was homeless. He states that he was incarcerated for 5 months and rearrested when he did not report to his hotel security officer at that time. He states that the article had linked him to this Flo Marx in that "the name game...Will-E and my name And-Y" and goes on to state that he was linked to a "copy cat thing ". He continues to deny any homicidal ideations and states that he is just worried where he will live after discharge. Review of Systems Except as stated in HPI: all other systems reviewed are Neg Mental Status Examination Appearance: Appropriate Consciousness: Alert Orientation: Person, Place, Date/Time Motor Activity: Normal gait Speech: Unremarkable Language: Adequate Fund of Knowledge: Adequate Attention and Concentration: Inadequate Memory: Impaired Mood: Anxious Affect: Appropriate, Other Thought Process & Associations: Linear, Other Thought Content: Bizarre thinking, Preoccupations, Delusional Hallucination Type: None Delusion Type: Paranoid, Other (persecutory) Suicidal Ideation: No Suicidal Plan: No Suicidal Intention: No Homicidal Ideation: No Homicidal Plan: No Homicidal Intention: No Insight: Poor Judgment: Poor Results Vitals/IOs Vital Signs Date Time Temp Pulse Resp B/P (MAP) Pulse Ox O2 Delivery O2 Flow Rate FiO2 05/24/17 05:43 97.9 75 17 96/63 (26) 98 Assessment & Plan Problem List: (1) Schizophrenia, paranoid type ICD Codes: F20.0 - Paranoid schizophrenia Assessment & Plan Patient continues with persecutory delusions from the government but has no intention on acting on the delusion. He continues to appear anxious about his housing situation but has been calm and cooperative with staff with no behavioral dyscontrol since admission. Continue current treatment. Will attempt to contact a patient's outpatient psychiatrist, Dr. Shelton @ [facility] for collateral. Continue to monitor mood and behavior. Discharge planning in progress. Justification for Cont. Inpt. At risk for decompensation at lower level of care. Discharge Planning To be determined. Himanshu Mary MD May 24, 2017 17:33
[2017-05-24 18:00] VITALS: BP 132/91; PULSE 100; RESP 18; TEMP 97.8; O2SAT 99
[2017-05-24] MEDS: ATORVASTATIN 20 MG TAB PO SCH (20:19)
[2017-05-24] MEDS: traZODone HCL 100 MG TAB PO SCH (20:19)
[2017-05-24] MEDS: ZIPRASIDONE HCL 60 MG CAP PO SCH (20:19)
[2017-05-25 05:33] VITALS: BP 111/64; PULSE 75; RESP 16; TEMP 98.7; O2SAT 97
[2017-05-25] MEDS: REMOVE OLD PATCH T-DERMAL SCH (09:00)
[2017-05-25] MEDS: VENLAFAXINE HCL XR 75 MG CAP PO SCH (09:28)
[2017-05-25] MEDS: BENZTROPINE MESYLATE 1 MG TAB PO SCH (09:28)
[2017-05-25] MEDS: NICOTINE 14 MG/24 HR PATCH T-DERMAL SCH (09:28)
[2017-05-25] MEDS: CHOLECALCIFEROL (VIT D3) 1000 UNIT TAB PO SCH (09:28)
[2017-05-25] MEDS ORDERED: Benztropine PO (14:17)
[2017-05-25] MEDS ORDERED: TRAZ100T10 PO (14:17)
[2017-05-25] MEDS ORDERED: VENL150C39 PO ×2 (14:17)
[2017-05-25] MEDS ORDERED: CHOL1000 PO (14:17)
[2017-05-25] MEDS ORDERED: GEOD60CA PO (14:17)
[2017-05-25] MEDS ORDERED: ATOR20TA15 PO (14:17)
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
--- NOTE | 2017-05-25 14:57 | PD.TTN ---
Patient Problems 1. Discharge planning 2. Medication compliance 3. Knowledge deficit 4. Lack of coping skills Progress Toward Goals Provider Present: Dr. Mian Mary Provider Input: 05/16/17 patient remains delusional and paranoid 05/24 patient remains compliant but chronic delusions with paranoia but overall no behavioral issues Psychiatric Counselors Present: Graciela Mckeon LCSW Psych Therapist Input: 05/24 patient comes to group and has some insight but shares his paranoia once trust is established needs a placement to accomodate him 05/16/17 patient is in need of placement and [facility] is supposed to assist, unable to reach senior case manager at [facility], most facilities appear not accepting patient at this time as discharge planners have worked on placement already Group Spec/RT/OT/MCCRAY Present: Aaron Casas OT Group Spec/RT/OT/MCCRAY Input: attends 75% of groups and participates some 05/24 attends groups and participates in about 50% Graciela Mckeon LCSW May 25, 2017 14:56
== END 2017-05-25 15:45 | DRG 885 ==
LOC: NEPJ 15:18 → NEDA 05-10 10:23 → H260 05-10 12:50
PROVIDERS: ADMIT Student in an Organized Health Care Education/Training Program; ATTEND Student in an Organized Health Care Education/Training Program
DX: F20.0 Paranoid schizophrenia (principal); N17.9 Acute kidney failure, unspecified; E86.0 Dehydration; Z59.0 Homelessness; E78.5 Hyperlipidemia, unspecified; Z72.0 Tobacco use; I10 Essential (primary) hypertension; E55.9 Vitamin D deficiency, unspecified
CPT/HCPCS: 80053; 80061; 80307; 82306; 82607; 83036; 84443; 85007; 85025; 85027; 93005; 99285; Q0163

== ENCOUNTER 2017-06-06 11:28 | Inpatient (IN) | payer OTHER, MEDICARE ==
[~2017-06-06] VITALS: Ht 172.7 cm; Wt 85.8 kg
[~2017-06-06 11:28] MED LIST changes: -ATOR20TA PO; +ATOR20TA15 PO; -BENZ1TAB PO; +Benztropine PO; +CHOL1000 PO; -EFFE75CA PO; +GEOD60CA PO; -GEOD80CA PO; -TRAZ100 PO; +TRAZ100T10 PO; +VENL150C39 PO
[2017-06-06 11:41] VITALS: BP 109/55; PULSE 96; RESP 18; TEMP 97.9; O2SAT 99
[2017-06-06 12:03] LABS: BASOPHIL % 0.5 % (0.0-2.0); EOSINOPHIL # 0.1 TH/MM3 (0-0.4); EOSINOPHIL % 1.4 % (0.0-4.0); HEMATOCRIT 47.6 % (39.0-51.0); LYMPH % 18.9 % (9.0-44.0); LYMPHOCYTE # 1.3 TH/MM3 (1.0-4.8); MEAN CELL VOLUME 94.8 FL (80.0-100.0); MEAN CORPUSCULAR HEMOGLOBIN 33.7 PG (27.0-34.0); MEAN CORPUSCULAR HGB CONC 35.6 % (32.0-36.0); MEAN PLATELET VOLUME 7.2 FL (7.0-11.0); MONO % 6.9 % (0.0-8.0); MONOCYTE # 0.5 TH/MM3 (0-0.9); NEUT % 72.3 % (16.0-70.0); PLATELET COUNT 199 TH/MM3 (150-450); RED BLOOD COUNT 5.03 MIL/MM3 (4.50-5.90); RED CELL DISTRIBUTION WIDTH 12.2 % (11.6-17.2); WHITE BLOOD COUNT 6.9 TH/MM3 (4.0-11.0)
[2017-06-06 12:10] LABS: BLOOD, URINE NEG (NEG); GLUCOSE,URINE NEG (NEG); KETONE, URINE 80 mg/dL (NEG); MUCUS URINE MANY /lpf (OCC); NITRITE,URINE NEG (NEG); SQUAMOUS EPITHELIAL CELL URINE 1 /hpf (0-5); URINE COLOR YELLOW (YELLW/STRAW); URINE LEUKOCYTE ESTERASE NEG (NEG)
[2017-06-06 12:13] LABS: BILIRUBIN, URINE NEG (NEG)
[2017-06-06 12:24] LABS: ALBUMIN 4.1 GM/DL (3.4-5.0); AST (GOT) 42 U/L (15-37); BICARBONATE 22.1 MEQ/L (21.0-32.0); BLOOD UREA NITROGEN 17 MG/DL (7-18); CHLORIDE 106 MEQ/L (98-107); GLOMERULAR FILTRATION RATE 58 ML/MIN (>89); GLUCOSE,RANDOM 82 MG/DL (74-106); SODIUM (NA) 138 MEQ/L (136-145)
[2017-06-06 12:25] LABS: ALT (GPT) 50 U/L (12-78)
[2017-06-06 12:27] LABS: ALKALINE PHOSPHATASE 72 U/L (45-117); TOTAL PROTEIN 7.7 GM/DL (6.4-8.2)
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
[2017-06-06 17:02] VITALS: BP 125/62; PULSE 105; RESP 20; TEMP 97.8; O2SAT 96
[2017-06-06 18:13] VITALS: BP 111/63; PULSE 79; RESP 18; O2SAT 99
[2017-06-06] MEDS ORDERED: MAGNESIUM HYDROXIDE SUSP 30 ML CUP PO PRN (22:00)
[2017-06-06] MEDS ORDERED: BENZTROPINE MESYLATE 2 MG/2 ML VIAL IM PRN (22:00)
[2017-06-06] MEDS ORDERED: hydrOXYzine HCL 50 MG TAB PO PRN (22:00)
[2017-06-06] MEDS ORDERED: ALUMINUM/MAGNESIUM/SIMETH 30 ML CUP PO PRN (22:00)
[2017-06-06] MEDS ORDERED: ACETAMINOPHEN 325 MG TAB PO PRN (22:00)
[2017-06-06] MEDS ORDERED: NICOTINE 21 MG/24 HR PATCH T-DERMAL PRN (22:00)
[2017-06-06] MEDS ORDERED: BENZTROPINE MESYLATE 1 MG TAB PO PRN (22:00)
[2017-06-06 22:45] VITALS: BP 121/61; PULSE 86; RESP 18; TEMP 98.1; O2SAT 96
[2017-06-06 23:00] VITALS: BP 98/59; PULSE 93; TEMP 97.6; O2SAT 96
[2017-06-07 06:10] VITALS: BP 111/69; PULSE 85; RESP 17; TEMP 97.9; O2SAT 97
[2017-06-07 09:00] LABS: ALBUMIN 3.6 GM/DL (3.4-5.0); ALKALINE PHOSPHATASE 62 U/L (45-117); ALT (GPT) 40 U/L (12-78); AST (GOT) 29 U/L (15-37); BICARBONATE 26.3 MEQ/L (21.0-32.0); BLOOD UREA NITROGEN 17 MG/DL (7-18); CALCIUM 8.5 MG/DL (8.5-10.1); CHLORIDE 104 MEQ/L (98-107); CHOLESTEROL 94 MG/DL (120-200); CHOLESTEROL/ HDL RATIO 2.33 RATIO; CREATININE 1.24 MG/DL (0.60-1.30); GLOMERULAR FILTRATION RATE 61 ML/MIN (>89); GLUCOSE,RANDOM 184 MG/DL (74-106); HDL CHOLESTEROL 40.2 MG/DL (40.0-60.0); LDL CHOLESTEROL 33 MG/DL (0-99); SODIUM (NA) 138 MEQ/L (136-145); TOTAL BILIRUBIN ADULT 0.4 MG/DL (0.2-1.0); TOTAL PROTEIN 7.1 GM/DL (6.4-8.2); TRIGLYCERIDES 103 MG/DL (42-150)
[2017-06-07] MEDS: CHOLECALCIFEROL (VIT D3) 1000 UNIT TAB PO SCH (09:05)
--- NOTE | 2017-06-07 13:02 | EKG ---
Date Performed: 06/06/2017 Time Performed: 14:20:35 PTAGE: 52 years EKG: Sinus rhythm NORMAL ECG PREVIOUS TRACING : 05/11/2017 12.48 DOCTOR: Ovi Siddiqi Interpretating Date/Time 06/07/2017 12:53:20
--- NOTE | 2017-06-07 13:52 | PD.CONS ---
[facility] Consult Requested By Primary Care Physician No Primary Care Physician Diagnoses: History of Present Illness hx from patient and review of medical records pt is admitted under psychiatry service for adjustment disorder, depression he was recently discharged from our hospital a few days ago states he has been at this new place after discharge and the conditions there were so horrible that he wont go back he reports not taking his meds since discharge because of this he previously used to live in group homes and was given meds by staff there, thus stated he does not know his meds- but nothing changed from a few days ago here denies other acute issues in recent few weeks Review of Systems Except as stated in HPI: all other systems reviewed are Neg Past Family Social History Allergies: Coded Allergies: loxapine (Unverified Allergy, Severe, EYES ROLL TO BACK OF HEAD, 06/06/17) sertraline (Unverified Allergy, Severe, EYES ROLL TO BACK OF HEAD, 06/06/17) Past Medical History R hand MRSA infection, Depression/bipolar/schizoaffective disorder Hyperlipidemia Hx of Hepatitis as a child- states the kind you get from needles Past Surgical History Right hand Family History estranged from father in sister (who live in [facility]), Mother in her 40's from Breast cancer Social History Remote etoh Dependency quit smoking 05/09/17 denies drug abuse Physical Exam Vital Signs Vital Signs Date Time Temp Pulse Resp B/P (MAP) Pulse Ox O2 Delivery O2 Flow Rate FiO2 06/07/17 06:10 97.9 85 17 111/69 (83) 97 06/07/17 02:31 06/06/17 23:00 97.6 93 98/59 (72) 96 06/06/17 22:45 98.1 86 18 121/61 (81) 96 Room Air 06/06/17 18:13 79 18 111/63 (79) 99 Room Air 06/06/17 17:02 97.8 105 20 125/62 (83) 96 Room Air Physical Exam GENERAL: This is a well-nourished, well-developed patient, in no apparent distress. SKIN: No rashes, ecchymoses or lesions. Cool and dry. HEAD: Atraumatic. Normocephalic. No temporal or scalp tenderness. EYES: . No scleral icterus. No injection or drainage. ENT: Nose without bleeding, purulent drainage or septal hematoma. Airway patent. NECK: Trachea midline. No JVD CARDIOVASCULAR: Regular rate and rhythm without murmurs, gallops, or rubs. RESPIRATORY: Clear to auscultation. Breath sounds equal bilaterally. No wheezes , rales, or rhonchi. GASTROINTESTINAL: Abdomen soft, non-tender, nondistended. No guarding. MUSCULOSKELETAL: Extremities without clubbing, cyanosis, or edema. No calf tenderness. NEURO: awake, alert, no focal deficit grossly Normal speech. Laboratory Laboratory Tests Test 06/07/17 08:03 Blood Urea Nitrogen 17 Creatinine 1.24 Random Glucose 184 Total Protein 7.1 Albumin 3.6 Calcium Level 8.5 Alkaline Phosphatase 62 Aspartate Amino Transf (AST/SGOT) 29 Alanine Aminotransferase (ALT/SGPT) 40 Total Bilirubin 0.4 Sodium Level 138 Potassium Level 3.7 Chloride Level 104 Carbon Dioxide Level 26.3 Anion Gap 8 Estimat Glomerular Filtration Rate 61 Triglycerides Level 103 Cholesterol Level 94 LDL Cholesterol 33 HDL Cholesterol 40.2 Cholesterol/HDL Ratio 2.33 Result Diagram: 06/06/17 1152 06/07/17 0803 Assessment and Plan Assessment and Plan Impression: Schizoaffective disorder. Suicidal attempt. Management per psychiatry. Hyperlipidemia. History of hepatitis as a child per patient. Plan: Patient's medications on EMR reviewed. Patient was recently discharged from the hospital and his medications were resumed. Patient is explained that hepatitis is something that he would need to check as an outpatient go through test and imaging studies by liver specialist to decide on whether he is a candidate for definitive treatment. If patient is to be discharged to longterm, this information could be related as well. Patient reports understanding. DVT prophylaxis with ambulation. We'll sign off on the case. Please reconsult if there is any acute medical issues. Discussed Condition With patient, nursing staff Carlos Beck MD Jun 07, 2017 13:52
--- NOTE | 2017-06-07 15:37 | HHI.HP ---
Provisional Diagnosis Admission Date Jun 06, 2017 at 21:57 [place] I. Adjustment disorder with depressed mood, Schizophrenia Certification of Person's Competence To Provide Express and Informed Consent I have personally examined Roel Diop , a person being served at [facility] on, Jun 07, 2017 15:28. Express and informed consent means consent voluntarily given in writing, by a competent person, after sufficient explanation and disclosure of the subject matter involved to enable the person to make a knowing and willful decision without any element of force, fraud, deceit, duress, or other form of constraint or coercion. This person is 18 years of age or older, is not now known to be incompetent to consent to treatment with a guardian advocate, and does not have a health care surrogate or proxy currently making medical treatment decisions. I have found this person to be one of the following: [] Competent to provide express and informed consent, as defined above, for voluntary admission to this facility and is competent to provide express and informed consent for treatment. He/she has the consistent capacity to make well reasoned, willful, and knowing decisions concerning his or her medical or mental health treatment. The person fully and consistently understands the purpose of the admission for examination/placement and is fully capable of personally exercising all rights assured [place] [x] Incompetent to provide express and informed consent to voluntary admission, and this is incompetent to provide express and informed consent to treatment. The person must be transferred to involuntary status and a petition for a guardian advocate filed with the Circuit Court. [] Refusing to provide express and informed consent to voluntary admission but is competent to provide express and informed consent for treatment. The person must be discharged or transferred to involuntary status. Form shall be completed within 24 hours of a person's arrival at the receiving facility and filed in the clinical record of each person: 1. Admitted on a voluntary basis 2. Permitted to provide express and informed consent to his/her own treatment 3. Allowed to transfer from involuntary to voluntary status 4. Prior to permitting a person to consent to his or her own treatment after having been previously found incompetent to consent to treatment. History of Present Illness Capacity: Has Capacity HPI Patient was found participating in a group activity in the day room was able to cooperate for interview today. Patient states that after his last discharge from the hospital he was provided an apartment which she lives in by himself and states that at this new place he had no food, [place] her parents for cooking and only $30 from his SSI money. Patient states that he had used that money to buy food and had run out recently had gone 2 days without eating prior to his admission. Patient states that since he had run out of food he had been having suicidal ideation the day he attempted to end his life. He reports that he has had multiple previous psych suicide attempts, this is the 10th time, stating that his last suicide attempt was at age of 30. Patient states that he had taking when he had left from his trazodone bottle which were about 19 tablets and had laid down on his bed but was able to wake up to next morning and realized that he had not and then was worried about might have done damages it didnt kill me from his overdose. He states having gone to a restaurant and request help and was subsequently brought to [facility] for treatment. Patient states prior to his suicide attempt that his mood has been fine until I ran out of food. Patient continues to report being paranoid with persecutory delusions from the government as well as stating that his wrapper caser is underside as he felt he was abandoned to his apartment without any help. Patient continues to report suicidal ideations, and paranoid/ persecutory delusions from the government but denies any homicidal ideations or perceptual disturbances at this time. Psychiatric family history: Denies Past psychiatric history: diagnosis of schizophrenia, multiple psychiatric hospitalizations, multiple previous suicide attempts. Substance use disorder: Tobacco use. Remote alcohol use. Patient denies use any other illegal substance. Past medical history: Hypertension, hyperlipidemia Allergies: Sertraline and loxapine Social history: Patient was born and raised in [place], he lives in a INTERMEDIATE, single, unemployed, supported by [facility], he has 1 year of college Review of Systems Except as stated in HPI: all other systems reviewed are Neg Past Psych History Psychological trauma history denies Violence risk - others (6 mos) low Violence risk - self (6 mos) elevated due to recent suicide attempt Substance Abuse History Drugs/Alcohol past 12 months Tobacco use. Remote alcohol use. Patient denies use any other illegal substance. Past Family Social History Coded Allergies: loxapine (Unverified Allergy, Severe, EYES ROLL TO BACK OF HEAD, 06/06/17) sertraline (Unverified Allergy, Severe, EYES ROLL TO BACK OF HEAD, 06/06/17) Active Scripts Cholecalciferol (Gnp Vitamin D3 Extra Stre) 1,000 Unit Tab, 1000 UNITS PO DAILY for health for 30 Days, #30 TAB Prov:Himanshu Mary MD 05/25/17 [Benztropine] 1 MG TAB No Conflict Check, 1 MG PO BID for health for 30 Days, # 60 Prov:Himanshu Mary MD 05/25/17 Ziprasidone (Geodon) 60 Mg Cap, 180 MG PO HS for health for 30 Days, #90 CAP Prov:Himanshu Mary MD 05/25/17 Venlafaxine ER 24 HR (Venlafaxine ER 24 HR) 150 Mg Cap, 150 MG PO DAILY@1600 for health, #30 CAP 0 Refills Prov:Himanshu Mary MD 05/25/17 Trazodone (Trazodone) 100 Mg Tablet, 100 MG PO HS for Control Depression, #30 TAB 0 Refills Prov:Himanshu Mary MD 05/25/17 Atorvastatin (Atorvastatin) 20 Mg Tab, 20 MG PO HS for health for 30 Days, #30 TAB Prov:Himanshu Mary MD 05/25/17 Discontinued Scripts Venlafaxine ER 24 HR (Venlafaxine ER 24 HR) 150 Mg Cap, 150 MG PO DAILY for health, #30 CAP 0 Refills Prov:Himanshu Mary MD 05/25/17 Naproxen (Naprosyn) 500 Mg Tab, 500 MG PO Q12HR Y for PAIN SCALE 1 TO 10, #20 TAB Prov:Janki Bond MD 12/23/15 Current Medications Medications (Trade) Dose Ordered Sig/Srini Route Start Time Stop Time Status Last Admin (Lipitor) 20 mg HS PO 06/07/17 21:00 (Vitamin D3) 1,000 units DAILY PO 06/07/17 09:00 06/07/17 09:05 (Tylenol) 650 mg Q4H PRN PO 06/06/17 22:00 (Milk Of Magnesia Liq) 30 ml DAILY PRN PO 06/06/17 22:00 (Mag-Al Plus Susp Liq) 30 ml Q6H PRN PO 06/06/17 22:00 (Habitrol 21 Mg Patch.24 Hr) 1 patch DAILY PRN T-DERMAL 06/06/17 22:00 (Atarax) 50 mg Q6H PRN PO 06/06/17 22:00 (Cogentin) 1 mg Q12H PRN PO 06/06/17 22:00 (Cogentin Inj) 1 mg Q12H PRN IM 06/06/17 22:00 Miscellaneous Information 1 HS T-DERMAL 06/07/17 21:00 (Flu (Quadrivalent) Vaccine Inj) 0.5 ml ONCE ONCE IM 06/08/17 10:00 06/08/17 10:01 (Effexor Xr) 150 mg DAILY@1600 PO 06/07/17 16:00 (Geodon) 180 mg HS PO 06/07/17 21:00 (Cogentin) 1 mg BID PO 06/07/17 21:00 Family Psych History Denies Social History Patient was born and raised in [place], he lives in a INTERMEDIATE, single, unemployed , supported by [facility], he has 1 year of college Patient's Strengths (min. 2) Verbal and communicative Physical Exam Patient not noted to be in acute distress, no gross motor abnormalities, no tremors or EPS, no noted psychomotor retardation or agitation. Vital Signs Vital Signs Date Time Temp Pulse Resp B/P (MAP) Pulse Ox O2 Delivery O2 Flow Rate FiO2 06/07/17 06:10 97.9 85 17 111/69 (83) 97 06/06/17 22:45 Room Air Lab Results labs reviewed Test 06/07/17 08:03 Blood Urea Nitrogen 17 MG/DL Creatinine 1.24 MG/DL Random Glucose 184 MG/DL Total Protein 7.1 GM/DL Albumin 3.6 GM/DL Calcium Level 8.5 MG/DL Alkaline Phosphatase 62 U/L Aspartate Amino Transf (AST/SGOT) 29 U/L Alanine Aminotransferase (ALT/SGPT) 40 U/L Total Bilirubin 0.4 MG/DL Sodium Level 138 MEQ/L Potassium Level 3.7 MEQ/L Chloride Level 104 MEQ/L Carbon Dioxide Level 26.3 MEQ/L Anion Gap 8 MEQ/L Estimat Glomerular Filtration Rate 61 ML/MIN Triglycerides Level 103 MG/DL Cholesterol Level 94 MG/DL LDL Cholesterol 33 MG/DL HDL Cholesterol 40.2 MG/DL Cholesterol/HDL Ratio 2.33 RATIO Mental Status Examination Appearance: Appropriate Consciousness: Alert Motor Activity: Normal gait Speech: Unremarkable Language: Adequate Fund of Knowledge: Inadequate Attention and Concentration: Adequate Memory: Unremarkable Mood: Sad, Anxious, Irritable Affect: Sad Thought Process & Associations: Linear Thought Content: Bizarre thinking, Delusional Hallucination Type: None Delusion Type: Paranoid Suicidal Ideation: Yes Suicidal Plan: No Suicidal Intention: No Homicidal Ideation: No Homicidal Plan: No Homicidal Intention: No Insight: Fair Judgment: Impulsive Assessment & Plan Problem List: (1) Adjustment disorder with depressed mood ICD Codes: F43.21 - Adjustment disorder with depressed mood (2) Schizophrenia, paranoid type ICD Codes: F20.0 - Paranoid schizophrenia Assessment & Plan Estimated LOS: 5-7 days. Patient at this time continues with depressed mood, anhedonia, suicidal ideation along with paranoid/persecutory delusions. Will restart ziprasidone 180mg PO daily, venlafaxine 150mg PO daily, benztropine 1mg PO BID. Petition for involuntary hospitalization started, 2nd opinion started. Continue to monitor mood and behavior. Discharge planning in progress. Discharge Planning To be determined Himanshu Mary MD Jun 07, 2017 15:37
[2017-06-07] MEDS: VENLAFAXINE HCL XR 75 MG CAP PO SCH (16:18)
[2017-06-07 16:24] LABS: HEMOGLOBIN A1C 5.3 % (4.3-6.0)
[2017-06-07] MEDS: REMOVE OLD NICODERM (NICOTINE) PATCH T-DERMAL SCH (21:00)
[2017-06-07] MEDS: BENZTROPINE MESYLATE 1 MG TAB PO SCH (21:38)
[2017-06-07] MEDS: ZIPRASIDONE HCL 60 MG CAP PO SCH (21:39)
[2017-06-07] MEDS: ATORVASTATIN 20 MG TAB PO SCH (21:39)
[2017-06-08 06:17] VITALS: BP 106/64; PULSE 72; RESP 18; TEMP 97.5; O2SAT 96
--- NOTE | 2017-06-08 07:58 | PD.PSY.CON ---
Provisional Diagnosis Admission Date Jun 06, 2017 at 21:57 [place] I. Adjustment disorder with depressed mood, Schizophrenia [place] II. Deferred [place] III. Hypertension History of Present Illness Service Psychiatry Consult Requested By Dr. Mary Reason for Consult Second opinion Primary Care Physician No Primary Care Physician HPI Patient was found participating in a group activity in the day room was able to cooperate for interview today. Patient states that after his last discharge from the hospital he was provided an apartment which she lives in by himself and states that at this new place he had no food, [place] her parents for cooking and only $30 from his [employer] money. Patient states that he had used that money to buy food and had run out recently had gone 2 days without eating prior to his admission. Patient states that since he had run out of food he had been having suicidal ideation the day he attempted to end his life. He reports that he has had multiple previous psych suicide attempts, this is the 10th time, stating that his last suicide attempt was at age of 30. Patient states that he had taking when he had left from his trazodone bottle which were about 19 tablets and had laid down on his bed but was able to wake up to next morning and realized that he had not and then was worried about might have done damages it didnt kill me from his overdose. He states having gone to a restaurant and request help and was subsequently brought to [facility] for treatment. Patient states prior to his suicide attempt that his mood has been fine until I ran out of food. Patient continues to report being paranoid with persecutory delusions from the government as well as stating that his piano case and bench assembler is underside as he felt he was abandoned to his apartment without any help. Patient continues to report suicidal ideations, and paranoid/ persecutory delusions from the government but denies any homicidal ideations or perceptual disturbances at this time. The patient is a 52 years old man, homeless, unemployed, single supported by [facility], with secondary history of schizophrenia, multiple psychiatric hospitalizations, he was recently hospitalized and discharged from [place], previous suicidal attempts, medical history of hypertension and hyperlipidemia, who was brought to the hospital under [place] act after a suicidal attempt by overdosing. He was consulted to me for second opinion. On psychiatric evaluation the patient is in the recreational area of the unit waiting for his breakfast. He is calm, cooperative, smiling. The patient reports that he came to the hospital because he was feeling very overwhelmed, frustrated, with a sense of emptiness, and he decided to commit suicide by overdosing. At this moment the patient have suicidal thoughts, but no plan. Patient denies homicidal ideation, he denies visual and auditory hallucinations at the moment. He is oriented 3, no attention deficit, no fluctuation of consciousness. He has been compliant with his medications,and side effects. Patient has not present any agitation or aggressive behavior. Review of Systems Constitutional: DENIES: Diaphoretic episodes, Fatigue, Fever, Weight gain, Weight loss, Chills, Dizziness, Change in appetite, Night Sweats Endocrine: DENIES: Heat/cold intolerance, Polydipsia, Polyuria, Polyphagia Eyes: DENIES: Blurred vision, Diplopia, Eye inflammation, Eye pain, Vision loss , Photosensitivity, Double Vision Ears, nose, mouth, throat: DENIES: Tinnitus, Hearing loss, Vertigo, Nasal discharge, Oral lesions, Throat pain, Hoarseness, Ear Pain, Running Nose, Epistaxis, Sinus Pain, Toothache, Odynophagia Respiratory: DENIES: Apneas, Cough, Snoring, Wheezing, Hemoptysis, Sputum production, Shortness of breath Cardiovascular: DENIES: Chest pain, Palpitations, Syncope, Dyspnea on Exertion , PND, Lower Extremity Edema, Orthopnea, Claudication Gastrointestinal: DENIES: Abdominal pain, Black stools, Bloody stools, Constipation, Diarrhea, Nausea, Vomiting, Difficulty Swallowing, Anorexia Genitourinary: DENIES: Sexual dysfunction, Urinary frequency, Urinary incontinence, Urgency, Hematuria, Dysuria, Nocturia, Penile Discharge, Testicular Pain, Testicular Swelling Musculoskeletal: DENIES: Joint pain, Muscle aches, Stiffness, Joint Swelling, Back pain, Neck pain Integumentary: DENIES: Abnormal pigmentation, Nail changes, Pruritus, Rash Hematologic/lymphatic: DENIES: Bruising, Lymphadenopathy Neurologic: DENIES: Abnormal gait, Headache, Localized weakness, Paresthesias, Seizures, Speech Problems, Tremor, Poor Balance Psychiatric: COMPLAINS OF: Suicidal Ideation, DENIES: Anxiety, Confusion, Mood changes, Depression, Hallucinations, Agitation, Homicidal Ideation, Delusions Past Family Social History Coded Allergies: loxapine (Unverified Allergy, Severe, EYES ROLL TO BACK OF HEAD, 06/06/17) sertraline (Unverified Allergy, Severe, EYES ROLL TO BACK OF HEAD, 06/06/17) Active Scripts Cholecalciferol (Gnp Vitamin D3 Extra Stre) 1,000 Unit Tab, 1000 UNITS PO DAILY for health for 30 Days, #30 TAB Prov:Himanshu Mary MD 05/25/17 [Benztropine] 1 MG TAB No Conflict Check, 1 MG PO BID for health for 30 Days, # 60 Prov:Himanshu Mary MD 05/25/17 Ziprasidone (Geodon) 60 Mg Cap, 180 MG PO HS for health for 30 Days, #90 CAP Prov:Himanshu Mary MD 05/25/17 Venlafaxine ER 24 HR (Venlafaxine ER 24 HR) 150 Mg Cap, 150 MG PO DAILY@1600 for health, #30 CAP 0 Refills Prov:Himanshu Mary MD 05/25/17 Trazodone (Trazodone) 100 Mg Tablet, 100 MG PO HS for Control Depression, #30 TAB 0 Refills Prov:Himanshu Mary MD 05/25/17 Atorvastatin (Atorvastatin) 20 Mg Tab, 20 MG PO HS for health for 30 Days, #30 TAB Prov:Himanshu Mary MD 05/25/17 Discontinued Scripts Venlafaxine ER 24 HR (Venlafaxine ER 24 HR) 150 Mg Cap, 150 MG PO DAILY for health, #30 CAP 0 Refills Prov:Himanshu Mary MD 05/25/17 Naproxen (Naprosyn) 500 Mg Tab, 500 MG PO Q12HR Y for PAIN SCALE 1 TO 10, #20 TAB Prov:Janki Bond MD 12/23/15 Current Medications Medications (Trade) Dose Ordered Sig/Srini Route Start Time Stop Time Status Last Admin (Lipitor) 20 mg HS PO 06/07/17 21:00 06/07/17 21:39 (Vitamin D3) 1,000 units DAILY PO 06/07/17 09:00 06/07/17 09:05 (Tylenol) 650 mg Q4H PRN PO 06/06/17 22:00 (Milk Of Magnesia Liq) 30 ml DAILY PRN PO 06/06/17 22:00 (Mag-Al Plus Susp Liq) 30 ml Q6H PRN PO 06/06/17 22:00 (Habitrol 21 Mg Patch.24 Hr) 1 patch DAILY PRN T-DERMAL 06/06/17 22:00 (Atarax) 50 mg Q6H PRN PO 06/06/17 22:00 (Cogentin) 1 mg Q12H PRN PO 06/06/17 22:00 (Cogentin Inj) 1 mg Q12H PRN IM 06/06/17 22:00 Miscellaneous Information 1 HS T-DERMAL 06/07/17 21:00 (Flu (Quadrivalent) Vaccine Inj) 0.5 ml ONCE ONCE IM 06/08/17 10:00 06/08/17 10:01 (Effexor Xr) 150 mg DAILY@1600 PO 06/07/17 16:00 06/07/17 16:18 (Geodon) 180 mg HS PO 06/07/17 21:00 06/07/17 21:39 (Cogentin) 1 mg BID PO 06/07/17 21:00 06/07/17 21:38 Family Psych History No family psychiatric history Social History Patient was born and raised in [place], he is homeless, single, unemployed, supported by [facility] Patient's Strengths (min. 2) Verbal and communicative Physical Exam Vital Signs Vital Signs Date Time Temp Pulse Resp B/P (MAP) Pulse Ox O2 Delivery O2 Flow Rate FiO2 06/08/17 06:17 97.5 72 18 106/64 (78) 96 06/06/17 22:45 Room Air Lab Results Test 06/07/17 08:03 Blood Urea Nitrogen 17 MG/DL Creatinine 1.24 MG/DL Random Glucose 184 MG/DL Total Protein 7.1 GM/DL Albumin 3.6 GM/DL Calcium Level 8.5 MG/DL Alkaline Phosphatase 62 U/L Aspartate Amino Transf (AST/SGOT) 29 U/L Alanine Aminotransferase (ALT/SGPT) 40 U/L Total Bilirubin 0.4 MG/DL Sodium Level 138 MEQ/L Potassium Level 3.7 MEQ/L Chloride Level 104 MEQ/L Carbon Dioxide Level 26.3 MEQ/L Anion Gap 8 MEQ/L Estimat Glomerular Filtration Rate 61 ML/MIN Hemoglobin A1c 5.3 % Triglycerides Level 103 MG/DL Cholesterol Level 94 MG/DL LDL Cholesterol 33 MG/DL HDL Cholesterol 40.2 MG/DL Cholesterol/HDL Ratio 2.33 RATIO Mental Status Examination Appearance: Appropriate Consciousness: Alert Motor Activity: Normal gait Speech: Unremarkable Language: Adequate Fund of Knowledge: Inadequate Attention and Concentration: Adequate Memory: Unremarkable Mood: Sad, Anxious, Irritable Affect: Sad Thought Process & Associations: Linear Thought Content: Bizarre thinking, Delusional Hallucination Type: None Delusion Type: Paranoid Suicidal Ideation: Yes Suicidal Plan: No Suicidal Intention: No Homicidal Ideation: No Homicidal Plan: No Homicidal Intention: No Insight: Fair Judgment: Impulsive Assessment & Plan Problem List: (1) Adjustment disorder with depressed mood ICD Codes: F43.21 - Adjustment disorder with depressed mood Assessment & Plan: I have seen and examined this patient. We documentation, discussed the case with Dr. Usman jaquez. I agree and concur with his assessment and plan. Consult appreciated. (2) Schizophrenia, paranoid type ICD Codes: F20.0 - Paranoid schizophrenia Assessment & Plan Estimated LOS: Juan Del Rosario MD Jun 08, 2017 07:58
[2017-06-08] MEDS: BENZTROPINE MESYLATE 1 MG TAB PO SCH ×2 (08:46→21:41)
[2017-06-08] MEDS: CHOLECALCIFEROL (VIT D3) 1000 UNIT TAB PO SCH (08:46)
[2017-06-08] MEDS ORDERED: INFLUENZA VIRUS VACCINE (QUADRIVALENT) 0.5 ML SYR IM ONE (10:00)
[2017-06-08] MEDS: VENLAFAXINE HCL XR 75 MG CAP PO SCH (16:55)
[2017-06-08 17:28] VITALS: BP 109/72; PULSE 96; RESP 18; TEMP 98.1; O2SAT 95
--- NOTE | 2017-06-08 17:31 | HHI.PYPN ---
Subjective Remarks Patient seen for follow-up, chart reviewed. Discussion with nursing staff reported that the patient has been visible on the unit, compliant with treatment ; denies any AH. Patient was found in day room, calm and cooperative with interview. Patient states that he has been feeling down due to his current circumstances which led him to the hospital and states that he would be feeling more depressed if had to return back to his apartment with no food. He denies any AH but continues with fixed delusion of the government after him. Review of Systems Except as stated in HPI: all other systems reviewed are Neg Mental Status Examination Appearance: Appropriate Consciousness: Alert Orientation: Person, Place, Date/Time Motor Activity: Normal gait Speech: Unremarkable Language: Adequate Fund of Knowledge: Inadequate Attention and Concentration: Adequate Memory: Unremarkable Mood: Sad, Anxious Affect: Anxious Thought Process & Associations: Linear Thought Content: Bizarre thinking, Delusional Hallucination Type: None Delusion Type: Paranoid Suicidal Ideation: Yes (denies today) Suicidal Plan: No Suicidal Intention: No Homicidal Ideation: No Homicidal Plan: No Homicidal Intention: No Insight: Fair Judgment: Impulsive Results Vitals/IOs Vital Signs Date Time Temp Pulse Resp B/P (MAP) Pulse Ox O2 Delivery O2 Flow Rate FiO2 06/08/17 17:28 98.1 96 18 109/72 (84) 95 06/06/17 22:45 Room Air Assessment & Plan Problem List: (1) Adjustment disorder with depressed mood ICD Codes: F43.21 - Adjustment disorder with depressed mood (2) Schizophrenia, paranoid type ICD Codes: F20.0 - Paranoid schizophrenia Assessment & Plan Patient at this time, continues to report feeling depressed and with paranoid/ persecutory delusions but denies any perceptual disturbances. Will increase venlafaxine to 225mg PO daily for depression. Continue rest of medications. Continue to monitor mood and behavior. Discharge planning in progress. Justification for Cont. Inpt. At risk for further decompensation if at lower level of care. Discharge Planning To be determined Himanshu Mary MD Jun 08, 2017 17:31
[2017-06-08] MEDS: REMOVE OLD NICODERM (NICOTINE) PATCH T-DERMAL SCH (21:00)
[2017-06-08] MEDS: ATORVASTATIN 20 MG TAB PO SCH (21:41)
[2017-06-08] MEDS: ZIPRASIDONE HCL 60 MG CAP PO SCH (21:41)
[2017-06-09 05:20] VITALS: BP 98/67; PULSE 75; RESP 17; TEMP 97.4; O2SAT 99
[2017-06-09] MEDS: CHOLECALCIFEROL (VIT D3) 1000 UNIT TAB PO SCH (09:08)
[2017-06-09] MEDS: BENZTROPINE MESYLATE 1 MG TAB PO SCH ×2 (09:08→21:21)
--- NOTE | 2017-06-09 16:03 | HHI.PYPN ---
Subjective Remarks Patient is seen for follow, chart reviewed. Discussion nursing staff reported the patient will be visible on the unit. Patient was found in the room notably , cooperative. Patient states that he has been feeling "alright" also stated "my head is clearer". Patient reports continuing to have depressed mood along with suicide ideation last evening which lasted about an hour. Patient states that the factors that contribute to his feeling more depressed R worried about having return back to his appointment will be in a similar situation of not having any food and being able to survive. Review of Systems Except as stated in HPI: all other systems reviewed are Neg Mental Status Examination Appearance: Appropriate Consciousness: Alert Orientation: Person, Place, Date/Time Motor Activity: Normal gait Speech: Unremarkable Language: Adequate Fund of Knowledge: Inadequate Attention and Concentration: Adequate Memory: Unremarkable Mood: Sad, Anxious Affect: Anxious Thought Process & Associations: Linear Thought Content: Bizarre thinking, Delusional Hallucination Type: None Delusion Type: Paranoid Suicidal Ideation: Yes (denies today) Suicidal Plan: No Suicidal Intention: No Homicidal Ideation: No Homicidal Plan: No Homicidal Intention: No Insight: Fair Judgment: Impulsive Results Vitals/IOs Vital Signs Date Time Temp Pulse Resp B/P (MAP) Pulse Ox O2 Delivery O2 Flow Rate FiO2 06/09/17 05:20 97.4 75 17 98/67 (77) 99 06/06/17 22:45 Room Air Assessment & Plan Problem List: (1) Adjustment disorder with depressed mood ICD Codes: F43.21 - Adjustment disorder with depressed mood (2) Schizophrenia, paranoid type ICD Codes: F20.0 - Paranoid schizophrenia Assessment & Plan Patient continues to report depressed mood along with suicide ideations but states that he is feeling less depressed today. Patient continued to be anxious of returning back to his previous apartment without having any food. Patient also continues with paranoid/persecutory delusions from the government persecuting him. We will continue current treatment. Continue to monitor mood and behavior. Discharge planning in progress. Justification for Cont. Inpt. At risk for further decompensation if at lower level of care Discharge Planning To be determined Himanshu Mary MD Jun 09, 2017 16:03
[2017-06-09] MEDS: VENLAFAXINE HCL XR 75 MG CAP PO SCH (16:33)
[2017-06-09] MEDS: REMOVE OLD NICODERM (NICOTINE) PATCH T-DERMAL SCH (21:00)
[2017-06-09] MEDS: ATORVASTATIN 20 MG TAB PO SCH (21:20)
[2017-06-09] MEDS: ZIPRASIDONE HCL 60 MG CAP PO SCH (21:21)
[2017-06-10 06:16] VITALS: BP 124/79; PULSE 74; RESP 16; TEMP 97.7; O2SAT 100
[2017-06-10] MEDS: CHOLECALCIFEROL (VIT D3) 1000 UNIT TAB PO SCH (09:06)
[2017-06-10] MEDS: BENZTROPINE MESYLATE 1 MG TAB PO SCH ×2 (09:06→21:00)
--- NOTE | 2017-06-10 15:31 | HHI.PYPN ---
Subjective Remarks Pt seen and discussed with staff. He has been pacing hallways and mumbling to self. He remains internally stimulated. No SI/HI. He is cooperative with medications.He reports that he is struggling with depression and "only a little " SI. He is cooperative with medications. Mental Status Examination Appearance: Appropriate Consciousness: Alert Orientation: Person, Place, Date/Time Motor Activity: Normal gait Speech: Unremarkable Language: Adequate Fund of Knowledge: Inadequate Attention and Concentration: Adequate Memory: Unremarkable Mood: Sad, Anxious Affect: Anxious Thought Process & Associations: Linear Thought Content: Bizarre thinking, Delusional Hallucination Type: None Delusion Type: Paranoid Suicidal Ideation: Yes (intermittent) Suicidal Plan: No Suicidal Intention: No Homicidal Ideation: No Homicidal Plan: No Homicidal Intention: No Insight: Poor Judgment: Impulsive Results Vitals/IOs Vital Signs Date Time Temp Pulse Resp B/P (MAP) Pulse Ox O2 Delivery O2 Flow Rate FiO2 06/10/17 06:16 97.7 74 16 124/79 (94) 100 06/06/17 22:45 Room Air Assessment & Plan Problem List: (1) Schizophrenia, paranoid type ICD Codes: F20.0 - Paranoid schizophrenia (2) Adjustment disorder with depressed mood ICD Codes: F43.21 - Adjustment disorder with depressed mood Assessment & Plan Continue current tx plan. Estimated LOS: days Justification for Cont. Inpt. impairments in reality testing Dalia Galeas MD Jun 10, 2017 15:31
[2017-06-10] MEDS: VENLAFAXINE HCL XR 75 MG CAP PO SCH (16:37)
[2017-06-10 18:00] VITALS: BP 127/78; PULSE 95; RESP 18; TEMP 98.3; O2SAT 98
[2017-06-10] MEDS: REMOVE OLD NICODERM (NICOTINE) PATCH T-DERMAL SCH (21:00)
[2017-06-10] MEDS: ATORVASTATIN 20 MG TAB PO SCH (21:00)
[2017-06-10] MEDS: ZIPRASIDONE HCL 60 MG CAP PO SCH (21:00)
[2017-06-11 05:27] VITALS: BP 127/77; PULSE 91; RESP 18; TEMP 97.6; O2SAT 94
[2017-06-11] MEDS: BENZTROPINE MESYLATE 1 MG TAB PO SCH ×2 (08:25→20:36)
[2017-06-11] MEDS: CHOLECALCIFEROL (VIT D3) 1000 UNIT TAB PO SCH (08:25)
--- NOTE | 2017-06-11 14:10 | HHI.PYPN ---
Subjective Remarks Pt seen and discussed with staff. His mood is improved, but he continues to respond to internal stimuli. He has been pacing most of the day and engages minimally with others but has not been hostile. No SI/HI Mental Status Examination Appearance: Appropriate Consciousness: Alert Orientation: Person, Place, Date/Time Motor Activity: Normal gait Speech: Unremarkable Language: Adequate Fund of Knowledge: Inadequate Attention and Concentration: Adequate Memory: Unremarkable Mood: Sad, Anxious Affect: Anxious Thought Process & Associations: Linear Thought Content: Bizarre thinking, Delusional Hallucination Type: None Delusion Type: Paranoid Suicidal Ideation: No Suicidal Plan: No Suicidal Intention: No Homicidal Ideation: No Homicidal Plan: No Homicidal Intention: No Insight: Poor Judgment: Impulsive Results Vitals/IOs Vital Signs Date Time Temp Pulse Resp B/P (MAP) Pulse Ox O2 Delivery O2 Flow Rate FiO2 06/11/17 05:27 97.6 91 18 127/77 (94) 94 Intake and Output 06/11/17 06/11/17 06/12/17 08:00 16:00 00:00 Intake Total 240 ml 240 ml Balance 240 ml 240 ml Assessment & Plan Problem List: (1) Schizophrenia, paranoid type ICD Codes: F20.0 - Paranoid schizophrenia (2) Adjustment disorder with depressed mood ICD Codes: F43.21 - Adjustment disorder with depressed mood Assessment & Plan Pt slowly improving. continue current tx plan. Estimated LOS: days Justification for Cont. Inpt. impairments in reality testing Dalia Galeas MD Jun 11, 2017 14:10
[2017-06-11] MEDS: VENLAFAXINE HCL XR 75 MG CAP PO SCH (16:08)
[2017-06-11 18:49] VITALS: BP 130/80; PULSE 90; RESP 18; TEMP 98.6; O2SAT 96
[2017-06-11] MEDS: REMOVE OLD NICODERM (NICOTINE) PATCH T-DERMAL SCH (20:36)
[2017-06-11] MEDS: ATORVASTATIN 20 MG TAB PO SCH (20:36)
[2017-06-11] MEDS: ZIPRASIDONE HCL 60 MG CAP PO SCH (20:36)
[2017-06-12 06:10] VITALS: BP 103/61; PULSE 100; RESP 18; TEMP 98.7; O2SAT 96
[2017-06-12] MEDS: BENZTROPINE MESYLATE 1 MG TAB PO SCH ×2 (08:18→21:00)
[2017-06-12] MEDS: CHOLECALCIFEROL (VIT D3) 1000 UNIT TAB PO SCH (08:18)
[2017-06-12] MEDS: VENLAFAXINE HCL XR 75 MG CAP PO SCH (16:00)
--- NOTE | 2017-06-12 16:52 | HHI.PYPN ---
Subjective Remarks Patient is here for follow, chart reviewed. Discussion nursing staff reported the patient was noted to be talking to self last evening. Terminally preoccupied. Patient was found to ambulate on it and noted to be calm and cooperative. Patient states that his weekend went "so-so" stating that he does not want his current sample case porter to be involved in his care stating "I do not trust him" as he recalls having been put in his new residence and not having any food thereafter. Patient continues reported having paranoid ideation stating that people in his new neighborhood are aware of the "article I was in" and having known his prior history have threatened him. Patient continues to have paranoid and persecutory delusions of the government trying to persecute him. Review of Systems Except as stated in HPI: all other systems reviewed are Neg Mental Status Examination Appearance: Appropriate Consciousness: Alert Orientation: Person, Place, Date/Time Motor Activity: Normal gait Speech: Unremarkable Language: Adequate Fund of Knowledge: Inadequate Attention and Concentration: Adequate Memory: Unremarkable Mood: Anxious Affect: Anxious Thought Process & Associations: Linear Thought Content: Bizarre thinking, Delusional Hallucination Type: None Delusion Type: Paranoid Suicidal Ideation: No Suicidal Plan: No Suicidal Intention: No Homicidal Ideation: No Homicidal Plan: No Homicidal Intention: No Insight: Poor Judgment: Impulsive Results Vitals/IOs Vital Signs Date Time Temp Pulse Resp B/P (MAP) Pulse Ox O2 Delivery O2 Flow Rate FiO2 06/12/17 06:10 98.7 100 18 103/61 (75) 96 Assessment & Plan Problem List: (1) Schizophrenia, paranoid type ICD Codes: F20.0 - Paranoid schizophrenia (2) Adjustment disorder with depressed mood ICD Codes: F43.21 - Adjustment disorder with depressed mood Assessment & Plan Patient continues with paranoid persecutory delusions despite being on maximum dose of antipsychotic which may be fixed delusion. Patient noted to have continued anxious mood as he is worried about returning back to his residence without any assistance in having adequate food. Patient states feeling comfortable returning back to his residence if and only if he has an adequate plan to be able to have to provide for him or way where he can manage to have that has for himself. Continue current treatment. Treatment team will arrange with supervisor case loading to provide assistance. Discharge planning in progress Justification for Cont. Inpt. At risk for further decompensation at lower level of care Discharge Planning Patient to return back to his residence once coordination with supervisor case loading to help patient with assistance in acquiring food. Himanshu Mary MD Jun 12, 2017 16:52
[2017-06-12 17:25] VITALS: BP 106/66; PULSE 18; RESP 18; TEMP 98.2; O2SAT 95
[2017-06-12] MEDS: ZIPRASIDONE HCL 60 MG CAP PO SCH (21:00)
[2017-06-12] MEDS: ATORVASTATIN 20 MG TAB PO SCH (21:00)
[2017-06-12] MEDS: REMOVE OLD NICODERM (NICOTINE) PATCH T-DERMAL SCH (21:00)
[2017-06-13 05:37] VITALS: BP 104/62; PULSE 86; RESP 16; TEMP 97.6
[2017-06-13] MEDS: CHOLECALCIFEROL (VIT D3) 1000 UNIT TAB PO SCH (08:10)
[2017-06-13] MEDS: BENZTROPINE MESYLATE 1 MG TAB PO SCH ×2 (08:10→21:00)
--- NOTE | 2017-06-13 14:14 | HHI.PYPN ---
Subjective Remarks Patient seen for follow-up, chart reviewed. Discussion of his have reported the patient continues to have paranoid ideation has been compliant with treatment attending some groups and noted to talk himself at times on the unit. Patient was found in the room that massimo Purcell. Particular to be perseverative on wanting to return back to his apartment without without having himself as a payee to be able to sure that he has food available to him. Patient states that he has not been as being in over 20 years. Patient continues with paranoid and persecutory delusions of the government as well as other people in his neighborhood allegedly knowing about his previous arrest many years ago. He denies feeling depressed at this time denies any suicidal or homicidal ideations. Review of Systems Except as stated in HPI: all other systems reviewed are Neg Mental Status Examination Appearance: Appropriate Consciousness: Alert Orientation: Person, Place, Date/Time Motor Activity: Normal gait Speech: Unremarkable Language: Adequate Fund of Knowledge: Inadequate Attention and Concentration: Adequate Memory: Unremarkable Mood: Anxious Affect: Anxious Thought Process & Associations: Linear Thought Content: Bizarre thinking, Delusional Hallucination Type: None Delusion Type: Paranoid, Other (Persecutory delusion from the government) Suicidal Ideation: No Suicidal Plan: No Suicidal Intention: No Homicidal Ideation: No Homicidal Plan: No Homicidal Intention: No Insight: Poor Judgment: Impulsive Results Vitals/IOs Vital Signs Date Time Temp Pulse Resp B/P (MAP) Pulse Ox O2 Delivery O2 Flow Rate FiO2 06/13/17 05:37 97.6 86 16 104/62 (76) 06/12/17 17:25 95 Intake and Output 06/13/17 06/13/17 06/14/17 08:00 16:00 00:00 Intake Total 240 ml Balance 240 ml Assessment & Plan Problem List: (1) Schizophrenia, paranoid type ICD Codes: F20.0 - Paranoid schizophrenia (2) Adjustment disorder with depressed mood ICD Codes: F43.21 - Adjustment disorder with depressed mood Assessment & Plan Patient this time continue with fixed delusion of persecution from the government. Patient denies any depressive symptoms or any suicidal ideation or homicidal ideation at this time. Patient continues to preoccupation of his living situation back the apartment without having access to food. He is treatment he is currently contacting patient's oil field caser to build arrange for having patient have the facility to be able to acquire basic needs in that environment. Continue current treatment. Discharge planning in progress. Justification for Cont. Inpt. At risk for further decompensation if at lower level of care Himanshu Mary MD Jun 13, 2017 14:14
[2017-06-13] MEDS: VENLAFAXINE HCL XR 75 MG CAP PO SCH (15:33)
[2017-06-13 18:46] VITALS: BP 125/77; PULSE 107; RESP 18; TEMP 98.4; O2SAT 95
[2017-06-13] MEDS: REMOVE OLD NICODERM (NICOTINE) PATCH T-DERMAL SCH (21:00)
[2017-06-13] MEDS: ATORVASTATIN 20 MG TAB PO SCH (21:00)
[2017-06-13] MEDS: ZIPRASIDONE HCL 60 MG CAP PO SCH (21:00)
[2017-06-14 06:11] VITALS: BP 104/77; PULSE 81; RESP 16; TEMP 98.1; O2SAT 97
[2017-06-14] MEDS: BENZTROPINE MESYLATE 1 MG TAB PO SCH ×2 (08:28→21:03)
[2017-06-14] MEDS: CHOLECALCIFEROL (VIT D3) 1000 UNIT TAB PO SCH (08:28)
[2017-06-14] MEDS ORDERED: ATOR20TA15 PO (12:43)
[2017-06-14] MEDS ORDERED: Benztropine PO (12:43)
[2017-06-14] MEDS ORDERED: CHOL1000 PO (12:43)
[2017-06-14] MEDS ORDERED: GEOD60CA PO (12:43)
[2017-06-14] MEDS ORDERED: VENL225T PO (12:43)
--- NOTE | 2017-06-14 12:44 | HHI.DS ---
Psychiatry Discharge Summary Inpatient Psychiatric care?: Yes Advance Directive: No Reason Not Provided: information provided Mental Health AdvanceDirective: No Health Care Proxy: No Admission Admission Date Jun 06, 2017 at 21:57 Admission Diagnosis: Brief History Patient was found participating in a group activity in the day room was able to cooperate for interview today. Patient states that after his last discharge from the hospital he was provided an apartment which she lives in by himself and states that at this new place he had no food, Jim[place] her parents for cooking and only $30 from his SSI money. Patient states that he had used that money to buy food and had run out recently had gone 2 days without eating prior to his admission. Patient states that since he had run out of food he had been having suicidal ideation the day he attempted to end his life. He reports that he has had multiple previous psych suicide attempts, this is the 10th time, stating that his last suicide attempt was at age of 30. Patient states that he had taking when he had left from his trazodone bottle which were about 19 tablets and had laid down on his bed but was able to wake up to next morning and realized that he had not and then was worried about might have done damages it didnt kill me from his overdose. He states having gone to a restaurant and request help and was subsequently brought to [facility] for treatment. Patient states prior to his suicide attempt that his mood has been fine until I ran out of food. Patient continues to report being paranoid with persecutory delusions from the government as well as stating that his case assistant is underside as he felt he was abandoned to his apartment without any help. Patient continues to report suicidal ideations, and paranoid/ persecutory delusions from the government but denies any homicidal ideations or perceptual disturbances at this time. The patient is a 52 years old man, homeless, unemployed, single supported by [facility], with secondary history of schizophrenia, multiple psychiatric hospitalizations, he was recently hospitalized and discharged from [facility], previous suicidal attempts, medical history of hypertension and hyperlipidemia, who was brought to the hospital under [facility] act after a suicidal attempt by overdosing. He was consulted to me for second opinion. On psychiatric evaluation the patient is in the recreational area of the unit waiting for his breakfast. He is calm, cooperative, smiling. The patient reports that he came to the hospital because he was feeling very overwhelmed, frustrated, with a sense of emptiness, and he decided to commit suicide by overdosing. At this moment the patient have suicidal thoughts, but no plan. Patient denies homicidal ideation, he denies visual and auditory hallucinations at the moment. He is oriented 3, no attention deficit, no fluctuation of consciousness. He has been compliant with his medications,and side effects. Patient has not present any agitation or aggressive behavior. Tobacco Use In Past 30 Days: No Tobacco Past 30 Days Alcohol Use: Never Results Blood Pressure 104 / 77 Vital Signs Date Time Temp Pulse Resp B/P (MAP) Pulse Ox O2 Delivery O2 Flow Rate FiO2 06/14/17 06:11 98.1 81 16 104/77 (86) 97 Laboratory Results Test 06/07/17 08:03 Cholesterol Level 94 MG/DL (120-200) HDL Cholesterol 40.2 MG/DL (40.0-60.0) Hemoglobin A1c 5.3 % (4.3-6.0) LDL Cholesterol 33 MG/DL (0-99) Triglycerides Level 103 MG/DL (42-150) Medications Approp Antipsych med options 1 - Minimum of three failed multiple trials of monotherapy. 2 - Documented plan to taper to monotherapy due to previous use of multiple meds OR cross-taper in progress at D/C. 3 - Documentation of augmentation of Clozapine. 4 - Justification other than those listed in allowable values 1-3, document here : Discharge Pt Condition on Discharge: Stable Discharge Disposition: Discharge Home Discharge Instructions Diet Instructions: As Tolerated, No Restrictions Activities you can perform: Regular-No Restrictions Mental Status Examination Appearance: Appropriate Consciousness: Alert Orientation: Person, Place, Date/Time Motor Activity: Normal gait Speech: Unremarkable Language: Adequate Fund of Knowledge: Inadequate Attention and Concentration: Adequate Memory: Unremarkable Mood: Anxious Affect: Anxious Thought Process & Associations: Linear Thought Content: Bizarre thinking, Delusional Hallucination Type: None Delusion Type: Paranoid, Other (Persecutory delusion from the government) Suicidal Ideation: No Suicidal Plan: No Suicidal Intention: No Homicidal Ideation: No Homicidal Plan: No Homicidal Intention: No Insight: Poor Judgment: Impulsive Discharge/Advance Care Plan Health Problems: (1) Schizophrenia, paranoid type (2) Adjustment disorder with depressed mood Goals to promote your health * To prevent worsening of your condition and complications * To maintain your health at the optimal level Directions to meet your goals Take your medications as prescribed Follow your dietary instruction Follow activity as directed Keep your appointments as scheduled Take your immunizations and boosters as scheduled If your symptoms worsen call your PCP, if no PCP go to Urgent Care Center or Emergency Room For / questions related to your inpatient stay or results of tests pending at discharge, please contact Dr. Himanshu Mayr at Smoking is Dangerous to Your Health. Avoid second hand smoking Himanshu Mary MD Jun 14, 2017 12:44
--- NOTE | 2017-06-14 14:17 | HHI.PYPN ---
Subjective Remarks Patient seen for follow-up, chart reviewed. Discussion with nursing staff reported that the patient continues to endorse feeling depressed and stating that if he leaves the hospital he would walk in front of a moving vehicle. Patient was found in day room, calm and cooperative. He states that he has been feeling anxious about having to return back to the apartment as well as wanting to be his own payee. He reports that he feels that his case maker and the government are trying to keep him away from his money. Patient was reminded that arrangement by his case maker will be made so that he can have food available to him. Review of Systems Except as stated in HPI: all other systems reviewed are Neg Mental Status Examination Appearance: Appropriate Consciousness: Alert Orientation: Person, Place, Date/Time Motor Activity: Normal gait Speech: Unremarkable Language: Adequate Fund of Knowledge: Inadequate Attention and Concentration: Adequate Memory: Unremarkable Mood: Anxious Affect: Anxious Thought Process & Associations: Linear Thought Content: Bizarre thinking, Delusional Hallucination Type: None Delusion Type: Paranoid, Other (Persecutory delusion from the government) Suicidal Ideation: No Suicidal Plan: No Suicidal Intention: No Homicidal Ideation: No Homicidal Plan: No Homicidal Intention: No Insight: Poor Judgment: Impulsive Results Vitals/IOs Vital Signs Date Time Temp Pulse Resp B/P (MAP) Pulse Ox O2 Delivery O2 Flow Rate FiO2 06/14/17 06:11 98.1 81 16 104/77 (86) 97 Assessment & Plan Problem List: (1) Schizophrenia, paranoid type ICD Codes: F20.0 - Paranoid schizophrenia (2) Adjustment disorder with depressed mood ICD Codes: F43.21 - Adjustment disorder with depressed mood Assessment & Plan Patient continues with paranoid and percecutory delusions of the government trying to persecute him and take his money. assistant produce manager came to see patient to take patient back to his apartment and reviewed the plan to assure patient had access to food but patient refused to leave with his case maker stating that he would hurt himself if he was discharged back to his apartment. Will continue current treatment and arrange for patient to have concrete plan in place so that patient can have basic necessities to survive on his own. Other placement options will be explored as well. Patient continues to have elevated risk for self harm as the circumstances that led to his recent overdose are those which he faces now, the uncertainty of being able to survive in his apartment with no access to funds for food. Discharge planning in progress. Justification for Cont. Inpt. At risk of further decompensation of lower level of care Discharge Planning To be determined Himanshu Mary MD Jun 14, 2017 14:17
[2017-06-14] MEDS: VENLAFAXINE HCL XR 75 MG CAP PO SCH (16:15)
[2017-06-14 16:45] VITALS: BP 125/75; PULSE 112; RESP 18; TEMP 98.4; O2SAT 96
[2017-06-14] MEDS: REMOVE OLD NICODERM (NICOTINE) PATCH T-DERMAL SCH (21:00)
[2017-06-14] MEDS: ZIPRASIDONE HCL 60 MG CAP PO SCH (21:03)
[2017-06-14] MEDS: ATORVASTATIN 20 MG TAB PO SCH (21:03)
[2017-06-15 06:01] VITALS: BP 128/65; PULSE 58; RESP 16; TEMP 98.2; O2SAT 97
[2017-06-15] MEDS: BENZTROPINE MESYLATE 1 MG TAB PO SCH (09:17)
[2017-06-15] MEDS: CHOLECALCIFEROL (VIT D3) 1000 UNIT TAB PO SCH (09:17)
--- NOTE | 2017-06-15 11:25 | HHI.DS ---
Psychiatry Discharge Summary Inpatient Psychiatric care?: Yes Advance Directive: No Reason Not Provided: information provided Mental Health AdvanceDirective: No Health Care Proxy: No Admission Admission Date Jun 06, 2017 at 21:57 Admission Diagnosis: (1) Schizophrenia, paranoid type ICD Code: F20.0 - Paranoid schizophrenia (2) Adjustment disorder with depressed mood ICD Code: F43.21 - Adjustment disorder with depressed mood Brief History Patient was found participating in a group activity in the day room was able to cooperate for interview today. Patient states that after his last discharge from the hospital he was provided an apartment which she lives in by himself and states that at this new place he had no food, [place] her parents for cooking and only $30 from his SSI money. Patient states that he had used that money to buy food and had run out recently had gone 2 days without eating prior to his admission. Patient states that since he had run out of food he had been having suicidal ideation the day he attempted to end his life. He reports that he has had multiple previous psych suicide attempts, this is the 10th time, stating that his last suicide attempt was at age of 30. Patient states that he had taking when he had left from his trazodone bottle which were about 19 tablets and had laid down on his bed but was able to wake up to next morning and realized that he had not and then was worried about might have done damages it didnt kill me from his overdose. He states having gone to a restaurant and request help and was subsequently brought to [facility] for treatment. Patient states prior to his suicide attempt that his mood has been fine until I ran out of food. Patient continues to report being paranoid with persecutory delusions from the government as well as stating that his rifle case repairer is underside as he felt he was abandoned to his apartment without any help. Patient continues to report suicidal ideations, and paranoid/ persecutory delusions from the government but denies any homicidal ideations or perceptual disturbances at this time. The patient is a 52 years old man, homeless, unemployed, single supported by [facility], with secondary history of schizophrenia, multiple psychiatric hospitalizations, he was recently hospitalized and discharged from [place], previous suicidal attempts, medical history of hypertension and hyperlipidemia, who was brought to the hospital under [facility] act after a suicidal attempt by overdosing. He was consulted to me for second opinion. On psychiatric evaluation the patient is in the recreational area of the unit waiting for his breakfast. He is calm, cooperative, smiling. The patient reports that he came to the hospital because he was feeling very overwhelmed, frustrated, with a sense of emptiness, and he decided to commit suicide by overdosing. At this moment the patient have suicidal thoughts, but no plan. Patient denies homicidal ideation, he denies visual and auditory hallucinations at the moment. He is oriented 3, no attention deficit, no fluctuation of consciousness. He has been compliant with his medications,and side effects. Patient has not present any agitation or aggressive behavior. Tobacco Use In Past 30 Days: No Tobacco Past 30 Days Alcohol Use: Never Hospital Course The patient is a 52 years old man, homeless, unemployed, single supported by [facility], with secondary history of schizophrenia, multiple psychiatric hospitalizations, he was recently hospitalized and discharged from [place], previous suicidal attempts, medical history of hypertension and hyperlipidemia, who was brought to the hospital under [facility] act after a suicidal attempt by overdosing which he was admitted to the inpatient psychiatry unit for further evaluation and management. Patient was continued on ziprasidone 180mg PO daily, venlafaxine titrated to 225mg PO daily and benzotropine 1mg PO BID which patient tolerated well and noted to be calm and cooperative with staff. He was noted to be preoccupied with having been in the apartment with no food and endorsed continued paranoid/ persecutory delusions of the government trying persecute him. He had reported having more depressive symptoms in relation to his recent circumstances but was adherent to treatment. Patient denied any SI nor any HI during hospitalization but was concerned about feeling safe to return back to his apartment. Patient s rifle case repairer had visited with him to reassure that he would have the support and necessary food to do well when discharged which patient was reluctant to believe. Patient presented to mental health court which he was determined to no longer fulfill criteria for further involuntary psychiatric admission and discharged through the court. Upon discharge patient stated that he was feeling worried in regards to not having sufficient support but was encouraged to collaborate with his rifle case repairer and agreed to try again to go back to his apartment and aware that he may call for help if circumstances are overwhelming for him. He denied any SI, HI or perceptual disturbances. Patient agreed to continue medication regimen and outpatient follow up for continuity of care. I have counseled the patient regarding warning signs for need to return to the psychiatric emergency room as part of a general safety plan. Patient advised to call 911 or go nearest ED in case of emergency. Patient agrees with plan. Results Blood Pressure 128 / 65 Vital Signs Date Time Temp Pulse Resp B/P (MAP) Pulse Ox O2 Delivery O2 Flow Rate FiO2 06/15/17 06:01 98.2 58 16 128/65 (86) 97 Laboratory Results Test 06/07/17 08:03 Cholesterol Level 94 MG/DL (120-200) HDL Cholesterol 40.2 MG/DL (40.0-60.0) Hemoglobin A1c 5.3 % (4.3-6.0) LDL Cholesterol 33 MG/DL (0-99) Triglycerides Level 103 MG/DL (42-150) Summary of Procedures none Pending results at discharge: No Medications # of Antipsychotic meds at D/C: 1 Approp Antipsych med options 1 - Minimum of three failed multiple trials of monotherapy. 2 - Documented plan to taper to monotherapy due to previous use of multiple meds OR cross-taper in progress at D/C. 3 - Documentation of augmentation of Clozapine. 4 - Justification other than those listed in allowable values 1-3, document here : Discharge Discharge Date: Jun 15, 2017 Discharge Diagnosis: (1) Schizophrenia, paranoid type ICD Code: F20.0 - Paranoid schizophrenia (2) Adjustment disorder with depressed mood ICD Code: F43.21 - Adjustment disorder with depressed mood Pt Condition on Discharge: Stable Discharge Disposition: Discharge Home Discharge Instructions Diet Instructions: As Tolerated, No Restrictions Activities you can perform: Regular-No Restrictions Scheduled Appointment: Pancho Ferro Appointment Date: Jun 14, 2017 Discharge Time > 30 minutes Mental Status Examination Appearance: Appropriate Consciousness: Alert Orientation: Person, Place, Date/Time Motor Activity: Normal gait Speech: Unremarkable Language: Adequate Fund of Knowledge: Inadequate Attention and Concentration: Adequate Memory: Unremarkable Mood: Anxious Affect: Anxious Thought Process & Associations: Linear Thought Content: Bizarre thinking, Delusional Hallucination Type: None Delusion Type: Paranoid, Other (Persecutory delusion from the government) Suicidal Ideation: No Suicidal Plan: No Suicidal Intention: No Homicidal Ideation: No Homicidal Plan: No Homicidal Intention: No Insight: Poor Judgment: Impulsive Discharge/Advance Care Plan Health Problems: (1) Schizophrenia, paranoid type (2) Adjustment disorder with depressed mood Goals to promote your health * To prevent worsening of your condition and complications * To maintain your health at the optimal level Directions to meet your goals Take your medications as prescribed Follow your dietary instruction Follow activity as directed Keep your appointments as scheduled Take your immunizations and boosters as scheduled If your symptoms worsen call your PCP, if no PCP go to Urgent Care Center or Emergency Room For 21/11 questions related to your inpatient stay or results of tests pending at discharge, please contact Dr. Himanshu Mary at Smoking is Dangerous to Your Health. Avoid second hand smoking Himanshu Mary MD Jun 15, 2017 11:25
== END 2017-06-15 14:45 | disposition home or self-care (01) | DRG 885 ==
LOC: NEDAMB 11:28 → NEDA 21:57 → H260 23:16
PROVIDERS: ADMIT Student in an Organized Health Care Education/Training Program; ATTEND Student in an Organized Health Care Education/Training Program
DX: F20.0 Paranoid schizophrenia (principal); Z59.0 Homelessness; I10 Essential (primary) hypertension; F43.21 Adjustment disorder with depressed mood; T43.212A Poisoning by selective serotonin and norepinephrine reuptake inhibitors, intentional self-harm, initial encounter; R53.83 Other fatigue; E78.00 Pure hypercholesterolemia, unspecified; F17.210 Nicotine dependence, cigarettes, uncomplicated; Z23 Encounter for immunization
CPT/HCPCS: 80053; 80061; 80307; 81001; 83036; 85025; 90686; 93005; Q2038